=== PATIENT | female | born 1950 | race Caucasian/White ===

== ENCOUNTER → 2017-05-06 | Outpatient (CLI) | payer OTHER | LOC: RAD 11:20 | DX: Z12.31 Encounter for screening mammogram for malignant neoplasm of breast (principal); J18.9 Pneumonia, unspecified organism ==

== ENCOUNTER → 2018-06-27 | Outpatient (CLI) | payer OTHER | LOC: RAD 11:43 | DX: Z12.31 Encounter for screening mammogram for malignant neoplasm of breast (principal) ==

== ENCOUNTER → 2019-09-25 | Outpatient (CLI) | payer OTHER, MEDICARE | LOC: SJCVC 10:31 | DX: I25.10 Atherosclerotic heart disease of native coronary artery without angina pectoris (principal); I10 Essential (primary) hypertension; E78.00 Pure hypercholesterolemia, unspecified; I35.0 Nonrheumatic aortic (valve) stenosis; J44.9 Chronic obstructive pulmonary disease, unspecified; Z79.899 Other long term (current) drug therapy ==

== ENCOUNTER → 2020-06-09 | Outpatient (CLI) | payer OTHER, MEDICARE | LOC: SJCVCIMAG 09:36 | PROVIDERS: ATTEND Internal Medicine Cardiovascular Disease | DX: I08.0 Rheumatic disorders of both mitral and aortic valves (principal); I25.10 Atherosclerotic heart disease of native coronary artery without angina pectoris; J44.9 Chronic obstructive pulmonary disease, unspecified; Z98.61 Coronary angioplasty status; Z79.899 Other long term (current) drug therapy ==

== ENCOUNTER → 2021-02-10 | Outpatient (CLI) | payer OTHER, MEDICARE | LOC: SJCVCIMAG 10:44 → SJCVC 10:44 | PROVIDERS: ATTEND Internal Medicine Cardiovascular Disease | DX: I25.10 Atherosclerotic heart disease of native coronary artery without angina pectoris (principal); I10 Essential (primary) hypertension; E78.00 Pure hypercholesterolemia, unspecified; R29.898 Other symptoms and signs involving the musculoskeletal system; M25.559 Pain in unspecified hip; M79.662 Pain in left lower leg; M79.661 Pain in right lower leg; I35.0 Nonrheumatic aortic (valve) stenosis; J44.9 Chronic obstructive pulmonary disease, unspecified; Z87.891 Personal history of nicotine dependence; Z72.89 Other problems related to lifestyle; Z79.899 Other long term (current) drug therapy; Z88.2 Allergy status to sulfonamides ==

== ENCOUNTER 2021-06-19 16:28 | Inpatient (IN) | payer OTHER, MEDICARE ==
[~2021-06-19] VITALS: Ht 175.3 cm; Wt 99.0 kg
[2021-06-19] VITALS (18 sets, daily range): BP systolic 55–133; BP diastolic 24–113
--- NOTE | ~2021-06-19 | EMS ---
[facility] [address] [place] [address] EMS Patient Care Report Name: REHANA WHITTEN Room #: 245-P ADM IN M.R.#: [id number] Admission: 06/22/21 Attend Phys: Stef Valerio MD, Discharge: Date of : 50 Report #: [id number] THIS REPORT FOR: //name// Report Transmitted: 06/26/2021 13:53 EMS Care Summary [facility] Incident [id number] @ 06/19/2021 15:11 Incident Location [address] [place] [address] [place] [address] Patient Rehana Whitten Female, 70 Years 1950 Patient Address [address] [place] [id number] elevation (STEMI) myocardial infarction of unspecified site,Acute ischemic heart disease, unspecified, Patient Allergies , Disposition Transported No Lights/[place] Dispatch Reason Airmedical Transport Transported To [facility] Narrative LFE was called by [facility] to transport a pt having an inferior STEMI to [facility] per the pt s request. EMS reports the pt has sternal chest pain that radiated to bilateral shoulders. EMS gave the pt aspirin and morphine for pain. They added that the pt was very hypotensive (60-70 s systolic) on their initial assessment and after administration of Morphine administration. Pt had significant ST elevation in II, III and AVF with reciprocal changes. Pt has a hx of previous VT and received stents and was adamant that she wanted to go to [facility] where she has a [facility] [address] [place] [address] EMS Patient Care Report Name: REHANA WHITTEN Room #: 245-P ADM IN .R.#: [id number] Admission: 06/22/21 Attend Phys: Stef Valerio MD, Discharge: Date of : 50 Report #: [id number] controller operations and hr manager currently. Fast patches placed on pt for transport. labor relations specialist team was confirmed by E dispatch prior to agreeing to take the pt to requested receiving hospital. Report was called with 18 minute ETE to [place] and STEMI team requested by LFE crew. Upon arrival the ER the pt was placed in an ER room and STEMI was activated by COOPER APPRENTICE Narcisa Orozco. Care was transferred to ER nurse. Pt remained in ER room 12 until LFE departure. Initial Vitals @15:45P: 92,R: 13,BP: 127/86,Pain: 8/10,GCS: 15,Temp: 72.68F,Glucose: 127,SpO2: 97,Revised Trauma: 12, @15:53P: 81,R: 20,BP: 136/82,Pain: 6/10,GCS: 15,Temp: 75.56F,EtCO2: 26,SpO2: 99,Revised Trauma: 12, @16:03P: 99,R: 16,BP: 150/86,Pain: 6/10,GCS: 15,Temp: 75.13834208241938E,EtCO2: 28,SpO2: 95,Revised Trauma: 12, @16:15P: 91,R: 19,BP: 126/86,Pain: 6/10,GCS: 15,Temp: 74.84F,EtCO2: 25,SpO2: 90,Revised Trauma: 12, @16:24P: 99,R: 19,BP: 137/77,Pain: 7/10,GCS: 15,Temp: 65.12F,EtCO2: 29,SpO2: 99,Revised Trauma: 12, Assessments @15:38MENTAL:SKIN:HEENT:LUNG SOUNDS:ABDOMEN:PELVIS//GI:EXTREMITIES:PULSE:NEURO:@16:22MENTAL:SKIN:HEENT:LUNG SOUNDS:ABDOMEN:PELVIS//GI:EXTREMITIES:PULSE:NEURO: Impression ST elevation (STEMI) myocardial infarction of other sites Procedures @15:56 Other - Medication - 4 Liters per Minute (LPM [gas]) - Nasal Cannula Response: Improved @PTAMorphine - 4 Milligrams (mg) - Intravenous (IV) Response: Improved @PTAAspirin - 325 Milligrams (mg) - Oral Response: Unchanged @PTAIV Therapy - cc () Site: Antecubital-LeftSucceeded @16:12 Random blood glucose measurement (procedure)Succeeded @CERAMIC PAINTER: 16:14 Elevation of head of bed (procedure)Succeeded Timeline CERAMIC PAINTER,Morphine - 4 Milligrams (mg) - Intravenous (IV),Response: Improved CERAMIC PAINTER,Aspirin - 325 Milligrams (mg) - Oral,Response: Unchanged CERAMIC PAINTER,IV Therapy - cc Site: Antecubital-Left,Succeeded, 14:15,Call Received 15:10,Psap Call 15:11,Dispatched 15:20,En Route 15:32,On Scene [facility] [address] [place] [address] EMS Patient Care Report Name: CATALINA,REHANA E Room #: 245-P ADM IN ..#: [id number] Admission: 06/22/21 Attend Phys: Stef Valerio MD, Discharge: Date of : 50 Report #: [id number] 15:35,At Patient 15:43,Transfer Of Care 15:45,BP: 127/86 M,PULSE: 92,RR: 13 R,SPO2: 97 Ox,ETCO2: ,B,PAIN: 8,GCS: 15, 15:45,Depart Scene 15:53,BP: 136/82 M,PULSE: 81,RR: 20 R,SPO2: 99 Ox,ETCO2: 26 ,BG: ,PAIN: 6,GCS: 15, 15:56,Other - Medication - 4 Liters per Minute (LPM [gas]) - Nasal Cannula,Response: Improved 16:03,BP: 150/86 M,PULSE: 99,RR: 16 R,SPO2: 95 Ox,ETCO2: 28 ,BG: ,PAIN: 6,GCS: 15, 16:12,Random blood glucose measurement (procedure),Succeeded, 16:14,Elevation of head of bed (procedure),Succeeded, 16:15,BP: 126/86 M,PULSE: 91,RR: 19 R,SPO2: 90 Ox,ETCO2: 25 ,BG: ,PAIN: 6,GCS: 15, 16:19,At Destination 16:24,BP: 137/77 M,PULSE: 99,RR: 19 R,SPO2: 99 Ox,ETCO2: 29 ,BG: ,PAIN: 7,GCS: 15, 16:56,Call Closed 17:25,In District Disclaimer v1.1 Copyright 2020 [employer] This EMS Care Summary contains data elements from the applicable legal record (which may be displayed differently). It is designed to provide pertinent information for the following purposes: continuity of care, clinical quality, and state data reporting. The complete legal record is available to ED staff and administrators of the receiving hospital in [facility]'s Patient Tracker. All data is provided "as is."
--- NOTE | 2021-06-19 16:42 | NUR ---
1630 4000 HEPARIN GIVEN IV 1632 40 MG ATORVASTATIN GIVEN PO
[2021-06-19 20:24] LABS: BE(vivo) -20.4 mmol/L (-2 to +3); HCO3 9.9 mmol/L (22.0-26.0); PCO2 41.9 mmHg (35.0-45.0); PO2 101.4 mmHg (80.0-100.0); sO2 93.8 % (92.0-98.0)
[2021-06-19 20:25] LABS: pH 6.993 (7.360-7.450)
[2021-06-19 20:59] LABS: ABSOLUTE NEUTROPHILS 7.1 thou/uL (1.4-8.2); BASOPHILS 1.4 % (0.0-2.0); EOSINOPHILS 0.3 % (0.0-3.0); HEMATOCRIT 22.7 % (37.0-47.0); HEMOGLOBIN 7.6 gm/dL (12.0-15.0); LYMPHOCYTES 18.9 % (24.0-44.0); MCHC 33.3 g/dL (28.0-37.0); MCV 99.3 fL (80.0-100.0); PLATELET COUNT 164 thou/uL (150-400); POLYS 77.4 % (36.0-66.0); RBC 2.29 mil/uL (4.20-5.00); RDW 14.5 % (10.5-14.5); WBC 9.2 thou/uL (4.0-11.0)
[2021-06-19 21:08] LABS: BE(vivo) -12.6 mmol/L (-2 to +3); PCO2 34.5 mmHg (35.0-45.0); PO2 145.3 mmHg (80.0-100.0); sO2 98.5 % (92.0-98.0)
[2021-06-19 21:09] LABS: pH 7.225 (7.360-7.450)
[2021-06-19 21:20] LABS: CALCIUM 6.9 mg/dL (8.5-10.1); CREATININE 2.1 mg/dL (0.6-1.0); POTASSIUM 4.4 mmol/L (3.5-5.1)
[2021-06-19 21:25] LABS: ALBUMIN 2.1 g/dL (3.4-5.0); TOTAL BILIRUBIN 0.4 mg/dL (0.2-1.0)
[2021-06-19 21:31] LABS: MAGNESIUM 1.7 mg/dL (1.8-2.4)
[2021-06-19 22:57] LABS: BE(vivo) -12.4 mmol/L (-2 to +3); HCO3 15.8 mmol/L (22.0-26.0); PCO2 47.9 mmHg (35.0-45.0); PO2 88.2 mmHg (80.0-100.0); sO2 93.7 % (92.0-98.0)
[2021-06-19 22:58] LABS: pH 7.136 (7.360-7.450)
--- NOTE | 2021-06-19 23:45 | NUR ---
PT WAS TRANSFERRED FROM MANAGER OF MAINTENANCE AT 1930 WITH NO PREVIOUS REPORT GIVEN. PT WAS TRANSFERRED WITH LEVO, DOPAMINE, AND INTEGRILLIN INFUSING. PT UNSTABLE. O2 SATURATION 60S-70S AND LOW BP.
--- NOTE | 2021-06-20 00:04 | NUR ---
CRISSY DOW AND ASHA CALLED DUE TO PT CRITICAL CONDITION. ORDERS GIVEN. CAMILLE AT BEDSIDE. PT INTUBATED. CENTRAL LINE PLACED.
--- NOTE | 2021-06-20 00:26 | NUR ---
PALOMA TO BEDSIDE. SIGNIFICANT OTHER AT BEDSIDE. DR DOW SPOKE TO SIGNIFICANT OTHER ABOUT PT CONDITION AND DISCUSSED CODE STATUS.
[2021-06-20 04:40] LABS: HEMATOCRIT 25.7 % (37.0-47.0); HEMOGLOBIN 8.3 gm/dL (12.0-15.0); MCHC 32.5 g/dL (28.0-37.0); MCV 98.6 fL (80.0-100.0); RBC 2.61 mil/uL (4.20-5.00); RDW 14.9 % (10.5-14.5)
[2021-06-20 05:04] LABS: ALBUMIN 2.7 g/dL (3.4-5.0); ANION GAP 17 mmol/L (7-16); BUN 25 mg/dL (7-18); CHLORIDE 100 mmol/L (98-107); CHOLESTEROL 78 mg/dL (<200); CO2 18 mmol/L (21-32); CREATININE 2.5 mg/dL (0.6-1.0); GLUCOSE 492 mg/dL (74-106); HDL CHOLESTEROL 42 mg/dL (>40); LDL CHOLESTEROL -6 mg/dL (<100); SGOT 767 U/L (15-37); SGPT 201 U/L (30-65); SODIUM 135 mmol/L (136-145); TC:HDL 1.9 Ratio (Not establshd); TOTAL BILIRUBIN 0.9 mg/dL (0.2-1.0); TOTAL PROTEIN 5.5 g/dL (6.4-8.2); TRIGLYCERIDE 210 mg/dL (<150); VLDL 42 mg/dL (<40)
[2021-06-20 05:07] LABS: POTASSIUM 3.2 mmol/L (3.5-5.1); SERUM ASSESSMENT Clear
--- NOTE | 2021-06-20 05:52 | NUR ---
This RN did not call troponin value to Dr. Rodriguez at 0529 as he gave orders last night to not draw any troponins or call them.
--- NOTE | 2021-06-20 06:41 | NUR ---
CALLED DR WOODWARD AT 0327 TO UPDATE ABOUT PT CONDITION AND HEART RHYTHMS. ORDERS GIVEN. SEE MAR. WILL CONTINUE TO FOLLOW POC.
--- NOTE | 2021-06-20 08:30 | NUR ---
Assumed care after report. assessment done and evaluation of drips. talked with nicolette her significant other about present treatments.will cont to monitor.
[2021-06-20 09:04] LABS: BE(vivo) -12.7 mmol/L (-2 to +3); HCO3 14.3 mmol/L (22.0-26.0); PCO2 37.4 mmHg (35.0-45.0); pH 7.201 (7.360-7.450); sO2 96.3 % (92.0-98.0)
--- NOTE | 2021-06-20 09:05 | NUR ---
Dr Castellano here. orders for titrating meds off and evaluation of the situation.
--- NOTE | 2021-06-20 09:48 | NUR ---
Significant other here, updated.Plan is to titrate drips as much as possible. Taking pt's jewerly off. Shanika helping with taking the jewerly offwith lubicate. 1 watch, 1 gold looking necklace, 5 gold colored rings and 1 pendant 2 gold colored earrings given to Shanika.
--- NOTE | 2021-06-20 11:19 | 2DMMODE ---
[address] [address] 2 D/M-MODE ECHOCARDIOGRAM Name: LIZETH ARNOLD Room #: 245-P ADM IN M.R.#: [id number] Admission: 06/19/21 Attend Phys: Stef Valerio MD, Discharge: Date of : 50 Report #: [id number] THIS REPORT FOR: cc: Carly Kenny MD, Jennifer S. MD Lundgren,Faustino Rae MD [facility] ~ APPROVED REPORT Study performed: 06/19/2021 21:36:58 EXAM: Limited 2D Echocardiogram Patient Location: Bedside Room #: [facility] Status: on-call BSA: 2.02 HR: 66 bpm BP: 60/40 mmHg Other Information Study Quality: Adequate Indications S/P STEMI Shock Left Ventricle The left ventricle is normal size. There is normal left ventricular wall thickness. Left ventricular systolic function is mildly decreased. LVEF is 50%. Inferior and inferolateral wall hypokinesis at the base Right Ventricle The right ventricle is normal size. The right ventricular systolic function is normal. Atria The left atrium size is normal. The right atrium size is normal. Aortic Valve Aortic valve is moderately calcified and moderately stenotic (peak gradient 34 mmHg) Mitral Valve The mitral valve is normal in structure. Mild mitral regurgitation. [address] [address] 2 D/M-MODE ECHOCARDIOGRAM Name: LIZETH ARNOLD Room #: 245-P ADM IN M.R.#: [id number] Admission: 06/19/21 Attend Phys: Stef Valerio, Discharge: Date of : 50 Report #: [id number] No evidence of mitral valve stenosis. Tricuspid Valve The tricuspid valve is normal in structure. Moderate tricuspid insufficiency Pulmonic Valve The pulmonary valve is normal in structure. Great Vessels The aortic root is normal in size. Pericardium There is no pericardial effusion. Critical Notification Physician Notified <Conclusion> Abbreviated study Left ventricular systolic function is mildly decreased. LVEF is 50%. Inferior and inferolateral wall hypokinesis at the base Aortic valve is moderately calcified and moderately stenotic (peak gradient 34 mmHg) The mitral valve is normal in structure. Mild mitral regurgitation. There is no pericardial effusion. <ELECTRONICALLY SIGNED> By: Faustino Rodriguez MD, FACC 06/20/21 1119 1119 18 Faustino Rodriguez MD, FACC /INF
--- NOTE | 2021-06-20 11:23 | EKG ---
[place] [address] [facility] [facility] [employer] [address] ELECTROCARDIOGRAM REPORT Name: LIZETH ARNOLD Room #: 245-P ADM IN M.R.#: [id number] Admission: 06/19/21 Attend Phys: Stef Valerio MD, Discharge: Date of : 50 Report #: [id number] [facility] ED Test Date: 2021-06-19 Test Time: 16:37:02 Pat Name: LIZETH ARNOLD Department: Room: [facility] Gender: F Bellmaker: FAYE : 1950 Requested By: Dk Kaufman Order Number: [id number] MD: Faustino Rodriguez Measurements Intervals [place] Rate: 89 P: -71 DE: 233 QRS: 34 QRSD: 90 T: 94 QT: 372 QTc: 453 Interpretive Statements Sinus or ectopic atrial rhythm Occasional premature ventricular complexes Prolonged DE interval Abnormal R-wave progression, early transition Inferior infarct, acute (RCA) Lateral leads are also involved No previous ECG available for comparison Electronically Signed On 06-20-2021 11:23:16 CDT by Faustino Rodriguez [email or web address] <ELECTRONICALLY SIGNED> By: Faustino Rodriguez MD, [facility] 06/20/21 1123 1637 1637 Faustino Rodriguez MD, [facility] /EPI
--- NOTE | 2021-06-20 11:31 | EKG ---
[place] [address] [facility] [place] [address] ELECTROCARDIOGRAM REPORT Name: LIZETH ARNOLD Room #: [facility]- ADM IN M.R.#: [id number] Admission: 06/19/21 Attend Phys: Stef Valerio MD, Discharge: Date of : 50 Report #: [id number] [facility] [place] [place] Test Date: 2021-06-19 Test Time: 22:10:08 Pat Name: LIZETH ARNOLD Department: Room: [facility] Gender: F Lap Cutter: James ESTRADA : 1950 Requested By: Faustino Rodriguez Order Number: [id number] MD: Faustino Rodriguez Measurements Intervals [place] Rate: 99 P: SD: QRS: -4 QRSD: 94 T: 236 QT: 396 QTc: 509 Interpretive Statements Atrial fibrillation Ventricular premature complex Inferoposterior infarct, recent Prolonged QT interval Compared to ECG 06/19/2021 16:37:02 Prolonged QT interval now present ST elevation is less prominent Atrial fibrillation has replaced sinus rhythm Electronically Signed On 06-20-2021 11:31:09 CDT by Faustino Rodriguez [email or web address] <ELECTRONICALLY SIGNED> By: Faustino Rodriguez MD, [facility] 06/20/21 1131 221 09 Faustino Rodriguez MD, [facility] /EPI
--- NOTE | 2021-06-20 11:35 | EKG ---
[place] [address] [facility] [place] [address] ELECTROCARDIOGRAM REPORT Name: LIZETH ARNOLD Room #: [facility]- ADM IN M.R.#: [id number] Admission: 06/19/21 Attend Phys: Stef Valerio MD, Discharge: Date of : 50 Report #: [id number] [facility] Test Date: 2021-06-20 Test Time: 08:03:15 Pat Name: LIZETH ARNOLD Department: Room: [facility] Gender: F Early Childhood Associate: LORI : 1950 Requested By: Faustino Rodriguez Order Number: [id number] MD: Faustino Rodriguez Measurements Intervals [place] Rate: 91 P: [place]: QRS: -5 QRSD: 87 T: -20 QT: 420 QTc: 517 Interpretive Statements Accelerated junctional rhythm Inferoposterior infarct, recent Prolonged QT interval Compared to ECG 06/19/2021 22:10:08 Accelerated junctional rhythm now present Atrial fibrillation no longer present Ventricular premature complex(es) no longer present Electronically Signed On 06-20-2021 11:35:23 CDT by Faustino Rodriguez [email or web address] <ELECTRONICALLY SIGNED> By: Faustino Rodriguez MD, [facility] 06/20/21 1135 08 0803 Faustino Rodriguez MD, [facility] /EPI
[2021-06-20 11:49] VITALS: BP 118/66; BP 141/68
--- NOTE | 2021-06-20 12:30 | NUR ---
second Unit of PRBC given.
--- NOTE | 2021-06-20 13:00 | NUR ---
Call to Dr Rodriguez regarding extra order for the NaHCo3. Annika recieved.
--- NOTE | 2021-06-21 02:04 | NUR ---
06/20/212199 Patient oxygen saturation level dropped less than 89%. This RN increased fio2 from 50%-60%-70% and notified RT. Patient lung sounds are coarse on auscultation. Dr. Hart was notified of the patient's condition. Dr. hart ordered 40mg of lasix. Patient's fio2 was increased from 70% to 100% by the RT. Pt spo2 was above 92% five minutes after intervention.
[2021-06-21 05:34] LABS: CALCIUM 6.9 mg/dL (8.5-10.1); CREATININE 3.3 mg/dL (0.6-1.0)
[2021-06-21 05:38] LABS: HEMATOCRIT 29.7 % (37.0-47.0); HEMOGLOBIN 9.8 gm/dL (12.0-15.0); MCH 30.5 pg (26.0-34.0); RBC 3.22 mil/uL (4.20-5.00); RDW 16.2 % (10.5-14.5); WBC 11.6 thou/uL (4.0-11.0)
[2021-06-21 05:41] LABS: MCV 92.4 fL (80.0-100.0); POTASSIUM 4.6 mmol/L (3.5-5.1)
--- NOTE | 2021-06-21 07:53 | NUR ---
Dr. Rodriguez rounded, updated on current status, fluid volume, lasix last night, gtt titrations, and labs.
--- NOTE | 2021-06-21 07:55 | NUR ---
Pt is not progressing towards plan of care as evidenced by continued dependence of vent for oxygen support and BP gtts for BP support. Pt is also on fentanyl and versed for sedation.
--- NOTE | 2021-06-21 08:36 | NUR ---
Updated patients spokes person on current status.
--- NOTE | 2021-06-21 12:24 | 2DMMODE ---
[facility] [place] [address] 2 D/M-MODE ECHOCARDIOGRAM Name: LIZETH ARNOLD Room #: 245-P ADM IN M.R.#: [id number] Admission: 06/19/21 Attend Phys: Stef Valerio MD, Discharge: Date of : 50 Report #: [id number] THIS REPORT FOR: cc: Carly Kenny MD, Jennifer S. MD Lundgren,Faustino Rae MD [facility] ~ APPROVED REPORT Study performed: 06/20/2021 11:01:20 EXAM: Comprehensive 2D, Doppler, and color-flow Echocardiogram Patient Location: Bedside Room #: 245 Status: on-call BSA: 2.02 HR: 89 bpm BP: 135/64 mmHg Rhythm: Atrial Fibrillation Other Information Study Quality: Technically Difficult Technically limited study due to inability to position patient, patient on ventilator. Indications Aortic Valve Disease S/P TN Respiratory Failure Shock 2D Dimensions IVSd: 11.29 (7-11mm) LVOT Diam: 22.00 (18-24mm) LVDd: 49.93 mm PWd: 10.46 (7-11mm) Ascending Ao: 32.21 (22-36mm) LVDs: 36.90 (25-40mm) Aortic Root: 32.12 mm LV Single Plane 4CH: 50.74 % LV Single Plane 2CH: 43.99 % Biplane EF: 47.5 % Volumes Left Atrial Volume (Systole) Single Plane 4CH: 71.41 mL Single Plane 2CH: 77.05 mL LA ESV Index: 46.00 mL/m2 [facility] [address] [address] 2 D/M-MODE ECHOCARDIOGRAM Name: LIZETH ARNOLD Room #: 245-P [facility]#: [id number] Admission: 06/19/21 Attend Phys: Stef Valerio, Discharge: Date of : 50 Report #: [id number] Aortic Valve AoV Peak Castro.: 2.79 m/s AO Peak Gr.: 31.40 mmHg LVOT Max P.98 mmHg AO Mean Gr.: 20.00 mmHg LVOT Mean P.18 mmHg AO V2 Mean: 2.12 m/s LVOT Max V: 0.70 m/s AO V2 VTI: 40.38 cm LVOT Mean V: 0.52 m/s ROSY (VTI): 0.93 cm2 LVOT V1 VTI: 10.30 cm ROSY Vmax: 0.91 cm2 SV (LVOT): 37.43 mL Pulmonary Valve PV Peak Castro.: 0.86 m/s PV Peak Gr.: 2.94 mmHg Tricuspid Valve TR Peak Castro.: 2.43 m/s TR Peak Gr.: 23.63 mmHg Left Ventricle The left ventricle is normal size. Inferior and inferolateral wall hypokinesis at the base. There is normal left ventricular wall thickness. Left ventricular systolic function is mildly decreased. LVEF is 45-50%. This study is not technically sufficient to allow evaluation of the LV diastolic function due to atrial fibrillation. Right Ventricle Right ventricle is dilated. The right ventricular systolic function is normal. Atria Left atrium is moderately dilated. Right atrium is dilated. Aortic Valve Aortic valve is calcified. Moderate aortic stenosis No aortic regurgitation is present. (Peak aortic gradient of 31 mmHg, mean gradient of 20 mmHg). Calculated aortic valve area of 0.9 cm2. Mitral Valve The mitral valve is normal in structure. Mild mitral regurgitation. No evidence of mitral valve stenosis. Tricuspid Valve The tricuspid valve is normal in structure. Trace to mild tricuspid regurgitation. Pulmonary artery pressure of 30mmHg [facility] [address] [place] [address] 2 D/M-MODE ECHOCARDIOGRAM Name: LIZETH ARNOLD Room #: 245-P [facility] IN [facility]#: [id number] Admission: 06/19/21 Attend Phys: Stef Valerio, Discharge: Date of : 50 Report #: [id number] Pulmonic Valve The pulmonary valve is normal in structure. Trace pulmonic regurgitation. Great Vessels The aortic root is normal in size. The ascending aorta is normal in size. IVC is dilated and collapses <50% with inspiration. Pt. is on a ventilator. Pericardium There is no pericardial effusion. <Conclusion> Left ventricular systolic function is mildly decreased. Inferior and inferolateral wall hypokinesis at the base. LVEF is 45-50%. Aortic valve is calcified. Moderate aortic stenosis. No aortic insufficiency (Peak aortic gradient of 31 mmHg, mean gradient of 20 mmHg). Calculated aortic valve area of 0.9 cm2. The mitral valve is normal in structure. Mild mitral regurgitation. Trace to mild tricuspid regurgitation. Pulmonary artery pressure of 30mmHg There is no pericardial effusion. <ELECTRONICALLY SIGNED> By: Faustino Rodriguez MD, FACC 06/21/21 1224 1224 1224 Faustino Rodriguez MD, FACC /INF
--- NOTE | 2021-06-21 12:41 | EKG ---
[place] [address] [facility] [place] [address] ELECTROCARDIOGRAM REPORT Name: LIZETH ARNOLD Room #: [facility]- ADM IN M.R.#: [id number] Admission: 06/19/21 Attend Phys: Stef Valerio MD, Discharge: Date of : 50 Report #: [id number] [facility] Test Date: 2021-06-21 Test Time: 08:45:23 Pat Name: LIZETH ARNOLD Department: Room: [facility] Gender: F Sales Representatives: SOFYA : 1950 Requested By: Faustino Rodriguez Order Number: [id number] MD: Faustino Rodriguez Measurements Intervals [place] Rate: 91 P: [place]: QRS: 6 QRSD: 81 T: -62 QT: 404 QTc: 498 Interpretive Statements Atrial fibrillation Inferior infarct, recent Compared to ECG 06/20/2021 08:03:15 Atrial fibrillation has replaced accelerated junctional rhythm Electronically Signed On 06-21-2021 12:41:06 INSTRUCTIONAL DESIGN CONSULTANT by Faustino Rodriguez [email or web address] <ELECTRONICALLY SIGNED> By: Faustino Rodriguez MD, [facility] 06/21/21 1241 845 4 Faustino Rodriguez MD, FACC /EPI
--- NOTE | 2021-06-21 13:46 | NUR ---
Talked with Dr. Serna in regards to the kub, kidney findings relayed to Dr. Castellano.
[2021-06-21 21:11] VITALS: BP 126/84
[2021-06-22] VITALS (62 sets, daily range): BP systolic 80–145; BP diastolic 55–96
[2021-06-22 01:10] LABS: BE(vivo) 5.9 mmol/L (-2 to +3); HCO3 28.9 mmol/L (22.0-26.0); PCO2 36.2 mmHg (35.0-45.0); PO2 83.5 mmHg (80.0-100.0); sO2 97.2 % (92.0-98.0)
[2021-06-22 04:40] LABS: BE(vivo) 6.6 mmol/L (-2 to +3); HCO3 30.5 mmol/L (22.0-26.0); PCO2 40.8 mmHg (35.0-45.0); PO2 75.6 mmHg (80.0-100.0); pH 7.491 (7.360-7.450); sO2 96.1 % (92.0-98.0)
[2021-06-22 04:43] LABS: HEMATOCRIT 30.7 % (37.0-47.0); HEMOGLOBIN 10.5 gm/dL (12.0-15.0); MCH 31.2 pg (26.0-34.0); MCV 91.7 fL (80.0-100.0); PLATELET COUNT 86 thou/uL (150-400); RBC 3.35 mil/uL (4.20-5.00); RDW 15.8 % (10.5-14.5); WBC 10.2 thou/uL (4.0-11.0)
[2021-06-22 05:03] LABS: CALCIUM 6.6 mg/dL (8.5-10.1); CREATININE 3.8 mg/dL (0.6-1.0)
[2021-06-22 05:05] LABS: POTASSIUM 3.6 mmol/L (3.5-5.1)
[2021-06-22 05:10] LABS: ABSOLUTE NEUTROPHILS 9.9 thou/uL (1.4-8.2); NUCLEATED RBCS 1 /100WBC
--- NOTE | 2021-06-22 07:26 | NUR ---
Patient is not progressing towards plan of care as evedenced by: dependence on vent for oxygen support, dependence on BP gtts for BP support. Pt is still fully sedated and responds only to painful stumuli. Pt's BP fluctuates drastically to over stimulation
--- NOTE | 2021-06-22 07:35 | EKG ---
[facility] [place] [address] ELECTROCARDIOGRAM REPORT Name: LIZETH ARNOLD Room #: [facility]- ADM IN M.R.#: [id number] Admission: 06/19/21 Attend Phys: Stef Valerio MD, Discharge: Date of : 50 Report #: [id number] [facility] Test Date: 2021-06-22 Test Time: 07:31:20 Pat Name: LIZETH ARNOLD Department: Room: [facility] Gender: F Treating Engineer: SILVINA : 1950 Requested By: Faustino Rodriguez Order Number: [id number] MD: Faustino Rodriguez Measurements Intervals [place] Rate: 96 P: CT: QRS: 8 QRSD: 70 T: 128 QT: 409 QTc: 517 Interpretive Statements Accelerated junctional rhythm Inferior infarct, recent Borderline repolarization abnormality Prolonged QT interval Compared to ECG 06/21/2021 08:45:23 Accelerated junctional rhythm now present Low QRS voltage now present Prolonged QT interval now present Electronically Signed On 06-22-2021 7:35:07 AIRPLANE PILOT by Faustino Rodriguez [email or web address] <ELECTRONICALLY SIGNED> By: Faustino Rodriguez MD, [facility] 06/22/2135 0 0 Faustino Rodriguez MD, [facility] /EPI
--- NOTE | 2021-06-22 12:09 | NUR ---
INITIAL ASSESSMENT: SW reviewed chart and spoke with nursing. Pt was life flighted to [facility] on Tuesday, 06/19 due to stemi. Pt was taken urgently to the label folder and transferred to ICU. Pt is currently intubated and sedated. Pt on several IV meds and gtts. DEB met with pt's granddtr, Rajwinder, at bedside. Introduced role of SW. Per Rajwinder, pt is normally independent with ADLs. Pt is usually alert/orientated x 4. Pt and her life partner, Lissa, live in [place], [place]. DPOA ppwk on pt's chart. Rajwinder requests documentation for her employer that states pt is in the hospital. SW to provide this documentation to Rajwinder later today. PT/OT evals to be ordered when pt is able to participate. DEB is following to assist as needed with discharge planning.
[2021-06-22 17:02] LABS: CALCIUM 6.5 mg/dL (8.5-10.1); POTASSIUM 3.8 mmol/L (3.5-5.1)
--- NOTE | 2021-06-22 18:17 | NUR ---
pt was given scheduled lasix twice today. no improvement in the urine output. Dr. Burgess was paged to inform about pt low urine output despite lasix therapy. Dr. Burgess gave verbal order not to be called for low urine output or no urine output.
--- NOTE | 2021-06-22 19:04 | NUR ---
Pt shaking. Pt temperature was 98.6 F. otoniel hugger on. sedation titrated up. pt becoming hypotensive. unsuccessful weaning off the vasopressors. pt not progressing towards goals.continue to monitor.
[2021-06-23] VITALS (8 sets, daily range): BP systolic 89–117; BP diastolic 58–71
[2021-06-23 04:01] LABS: HEMOGLOBIN 9.7 gm/dL (12.0-15.0); MCH 31.5 pg (26.0-34.0); MCHC 34.6 g/dL (28.0-37.0); MCV 91.1 fL (80.0-100.0); RBC 3.08 mil/uL (4.20-5.00); RDW 15.6 % (10.5-14.5); WBC 7.8 thou/uL (4.0-11.0)
[2021-06-23 04:11] LABS: CALCIUM 6.1 mg/dL (8.5-10.1); CREATININE 3.9 mg/dL (0.6-1.0); POTASSIUM 3.2 mmol/L (3.5-5.1)
--- NOTE | 2021-06-23 07:34 | EKG ---
[place] [address] [facility] [place] [address] ELECTROCARDIOGRAM REPORT Name: LIZETH ARNOLD Room #: [facility]- ADM IN M.R.#: [id number] Admission: 06/22/21 Attend Phys: Stef Valerio MD, Discharge: Date of : 50 Report #: [id number] [facility] Test Date: 2021-06-23 Test Time: 07:26:58 Pat Name: LIZETH ARNOLD Department: Room: [facility] Gender: F Generation Technician: SILVINA : 1950 Requested By: Faustino Rodriguez Order Number: [id number] MD: Faustino Rodriguez Measurements Intervals [place] Rate: 83 P: [place]: QRS: 16 QRSD: 93 T: 115 QT: 442 QTc: 520 Interpretive Statements Accelerated junctional rhythm Low voltage, precordial leads Abnormal R-wave progression, early transition Inferior infarct, age indeterminant Prolonged QT interval Compared to ECG 06/22/2021 07:31:20 No significant change was found Electronically Signed On 06-23-2021 7:34:24 FITNESS MANAGER by Faustino Rodriguez [email or web address] <ELECTRONICALLY SIGNED> By: Faustino Rodriguez MD, [facility] 06/23/2134 5 5 Faustino Rodriguez MD, [facility] /EPI
--- NOTE | 2021-06-23 12:00 | NUR ---
SW reviewed chart and spoke with nursing and attending physician. Pt remains in ICU. Pt is intubated and sedated. Neuro and ID consults ordered today. Tube feeding to be started. PT/OT evals to be ordered when pt is able to participate. SW is following to assist as needed with discharge planning.
[2021-06-23 13:27] LABS: URINE BILIRUBIN NEGATIVE (Negative); URINE BLOOD 3+ (Negative); URINE COLOR YELLOW; URINE GLUCOSE-RANDOM* NEGATIVE (Negative); URINE KETONES NEGATIVE (Negative); URINE PROTEIN (DIPSTICK) NEGATIVE (Negative); URINE UROBILINOGEN 0.2 E.U./dl (0.2-1.0)
[2021-06-23 13:37] LABS: URINE LEUKOCYTES-REFLEX 3+ (Negative); URINE NITRITE-REFLEX POSITIVE (Negative)
[2021-06-23 13:38] LABS: SSA (PROTEIN CONFIRMATORY) TRACE (APPROX. 5) mg/dL (Negative); URINE CLARITY HAZY
[2021-06-23 13:41] LABS: BE(vivo) 8.7 mmol/L (-2 to +3); HCO3 32.9 mmol/L (22.0-26.0); PO2 74.1 mmHg (80.0-100.0); pH 7.492 (7.360-7.450); sO2 95.8 % (92.0-98.0)
[2021-06-23 13:50] LABS: CASTS None Seen /LPF (None Seen); SQUAMOUS 0-3 Few /LPF (0-3)
[2021-06-23 13:51] LABS: AMORPHOUS PHOSPHATES Few /LPF (None Seen); URINE RBC 1-2 Rare /HPF (NONE SEEN); URINE WBC-REFLEX 6-15 Few /HPF (0-5)
[2021-06-24] VITALS: BP 137/72
[2021-06-24 04:00] VITALS: BP 152/77
[2021-06-24 06:13] LABS: HEMATOCRIT 29.9 % (37.0-47.0); MCHC 33.5 g/dL (28.0-37.0); MCV 92.6 fL (80.0-100.0); RBC 3.23 mil/uL (4.20-5.00); RDW 15.7 % (10.5-14.5); WBC 7.4 thou/uL (4.0-11.0)
[2021-06-24 06:31] LABS: ALBUMIN 1.8 g/dL (3.4-5.0); CALCIUM 6.2 mg/dL (8.5-10.1); CREATININE 3.7 mg/dL (0.6-1.0); PHOSPHORUS 5.8 mg/dL (2.5-4.9); POTASSIUM 3.1 mmol/L (3.5-5.1)
--- NOTE | 2021-06-24 07:30 | NUR ---
Very slow progress toward goals. Pt still on 70% FiO2, peep 10, requires deep sedation or has generalized body tremors (per previous nurse's report) -- not ready for weaning trials at this time. Remains on Quad strength Levophed at 13 mcg/min, Dobutamine at 8 mcg/kg/min but has been able to titrate Dopamine down from 8 mcg/kg/min to 3 mcg/kg/min. BP very dependent on pressors. Tube feeding started yesterday evening, so far tolerating well and able to increase from 10 cc/hr to 20 cc/hr. Pt has liquid light brown stool x1 last night. Fingers and toes are mottled and purple. Skin remains intact. Diuresing well from Lasix, 3650 cc out this shift.
--- NOTE | 2021-06-24 08:04 | EKG ---
[facility] [employer] [place] [address] ELECTROCARDIOGRAM REPORT Name: LIZETH ARNOLD Room #: [facility]- ADM IN M.R.#: [id number] Admission: 06/22/21 Attend Phys: Stef Valerio MD, Discharge: Date of : 50 Report #: [id number] [facility] Test Date: 2021-06-24 Test Time: 07:26:10 Pat Name: LIZETH ARNOLD Department: Room: [facility] Gender: F Instructional Assistant: SILVINA : 1950 Requested By: Faustino Rodriguez Order Number: [id number] MD: Faustino Rodriguez Measurements Intervals Mcneil Rate: 77 P: -75 IN: 127 QRS: 17 QRSD: 86 T: 80 QT: 383 QTc: 434 Interpretive Statements Sinus or ectopic atrial rhythm Nonspecific ST and T wave abnormality Inferior infarct, age indeterminate Prolonged QT interval Compared to ECG 06/23/2021 07:26:58 Sinus rhythm has replaced accelerated junctional rhythm Electronically Signed On 06-24-2021 8:04:42 ER MANAGER by Faustino Rodriguez [email or web address] <ELECTRONICALLY SIGNED> By: Faustino Rodriguez MD, [facility] 06/24/21803 5 5 Faustino Rodriguez MD, [facility] /EPI
--- NOTE | 2021-06-24 13:04 | HC ---
[facility] [place] [address] CONSULTATION Name: LIZETH ARNOLD Room #: 245-P [facility] IN M.R.#: [id number] Admission: 06/22/21 Attend Phys: Stef Valerio MD, Discharge: Date of : 50 Report #: [id number] THIS REPORT FOR: cc: Carly Kenny MD, Jennifer S. MD Barry, Joseph W. MD ~ DATE OF SERVICE: 06/23/2021 INFECTIOUS DISEASE CONSULTATION ATTENDING PHYSICIAN: Dr. Valerio. REASON FOR EVALUATION: Suspected aspiration pneumonitis and respiratory failure with early ARDS. HISTORY OF PRESENT ILLNESS: Chart reviewed, patient examined. This is a 70-year-old woman who has known history of coronary artery disease, who presented with chest pain. Evaluation suggested acute myocardial infarction. She was taken to the cardiac catheterization lab and underwent stenting procedure, experienced a postprocedure shock. She was intubated, currently on ventilatory support, FiO2 of 70%. She is sedated. Her granddaughter is at the bedside. Followup chest x-ray today showed worsening moderate to severe bilateral widespread predominantly ____ lower lobe interstitial and alveolar infiltrates, small bilateral pleural effusions, borderline heart size. ____ was found to have acute renal injury, most recent creatinine of 3.9, had required multiple pressors and ____, she is maintained on dopamine and norepinephrine. ALLERGIES: LISTED TO SULFA. CURRENT MEDICATIONS: Include furosemide, aspirin, atorvastatin, norepinephrine and dobutamine. PAST MEDICAL HISTORY: Known coronary artery disease with previous stenting, previous appendectomy. FAMILY HISTORY: Available in chart. REVIEW OF SYSTEMS: Unobtainable. PHYSICAL EXAMINATION: GENERAL: She is pale, appears chronically ill appearing. She is maintained on ventilatory support. She is encephalopathic. VITAL SIGNS: Temperature 98.7, pulse 86, respirations ____, blood pressure 102/68. SKIN: Warm, dry. HEENT: Normocephalic. Extraocular muscles intact. ET and OG tube in place. [facility] [address] [place] [address] CONSULTATION Name: LIZETH ARNOLD Room #: 245-P [facility] IN M.R.#: [id number] Admission: 06/22/21 Attend Phys: Stef Valerio MD, Discharge: Date of : 50 Report #: [id number] Central venous catheter on the right. LUNGS: Scattered coarse breath sounds. HEART: Irregular, I do not appreciate a murmur. ABDOMEN: Somewhat distended, mildly firm. There are no overt peritoneal signs. Has a right-sided inguinal triple lumen catheter. GENITOURINARY AND RECTAL: Deferred. LABORATORY DATA: Chest x-ray as described above. Electrolytes: Sodium 123, potassium 3.2, chloride 82, bicarbonate is 33, anion gap of 8, BUN and creatinine 33 and 3.9, EGFR of 11. CBC: White count 7.8, H and H 9.7 and 28.0, platelets at 71. Blood cultures sterile thus far. ASSESSMENT AND PLAN: Respiratory failure, pneumonitis, likely multifactorial certainly suggests a cardiac component, although cannot exclude aspiration. We will start empiric antimicrobial therapy for suspected aspiration. In addition, I will try to collect sputum, check some urinary antigen. She is critically ill at this point. Continue to monitor expectantly. <ELECTRONICALLY SIGNED> By: Silvano Milner MD 06/24/21 1304 1011 1138 Silvano Milner MD /nt
--- NOTE | 2021-06-24 18:36 | NUR ---
PT IS NOT PROGRESSING TOWARDS DISCHARGE AT THIS TIME, TO WORK TOWARDS GOAL RN HAS BEEN DECREASING THE SEDATION; NOW ON 50 FENTANYL, AND DECREASEING THE PRESSORS; LESSENED LEVOPHED, AND FOR INFECTION PROPHYLAXIS FEMORAL ART/SWAN LINE WAS REMOVED PER /PALOMA'S RECOMMENDATION AND NEW R RADIAL ART LINE DROPPED BY . PT MINIMALLY RESPONSIVE AT THIS TIME, RN PLACED A BAIRHUGGER SINCE PT'S DISTALS ARE TURNING CYANOTIC.
[2021-06-25 02:43] LABS: HEMATOCRIT 29.3 % (37.0-47.0); HEMOGLOBIN 9.8 gm/dL (12.0-15.0); MCH 30.7 pg (26.0-34.0); MCHC 33.5 g/dL (28.0-37.0); MCV 91.6 fL (80.0-100.0); RBC 3.2 mil/uL (4.20-5.00); RDW 15.5 % (10.5-14.5); WBC 9.8 thou/uL (4.0-11.0)
[2021-06-25 03:08] LABS: CALCIUM 6.4 mg/dL (8.5-10.1); CREATININE 3.7 mg/dL (0.6-1.0); POTASSIUM 3.1 mmol/L (3.5-5.1)
--- NOTE | 2021-06-25 03:45 | NUR ---
ASSUMED CARE OF PATIENT AT 1900. REMAINS ON PRESSORS AND LIGHT SEDATION. ELECTROLYTES REPLACED PER PROTOCOL. ART LINE IN PLACE FOR HEMODYNAMIC MONITORING. FINGERS AND TOES REMAIN MOTTLED AND CYANOTIC. NO CALLS FROM FAMILY THIS SHIFT.
--- NOTE | 2021-06-25 10:59 | NUR ---
ASSUMED CARE OF PT AT 0700 PTS GRAND DAUGHTER AT BEDSIDE AT 0800, ANSWERED ALL QUESTION PER POC EVELYN AT BEDSIDE TO PERFORM EEG AT 0930 SPOKE TO PT'S PARTNER CARY AT 1015 AND UPDATED HER PER POC
--- NOTE | 2021-06-25 11:49 | NUR ---
Case discussed in ICU rounds. EEG done this am. Gerardo Purdy is currently at bedside and sign other Lissa updated via phone per RN. She will be in later today. A copy of the pt's DPOA for HC/Adv Directive is on the chart. Her life partner Lissa is the primary agent and gerardo Purdy the alternate. Pt is on vent support, weaning off levo and poorly responsive. Hendricks is guarded. Will continue to follow.
[2021-06-26 05:33] LABS: HEMATOCRIT 27.1 % (37.0-47.0); HEMOGLOBIN 9.2 gm/dL (12.0-15.0); MCH 31.7 pg (26.0-34.0); MCHC 34.1 g/dL (28.0-37.0); RBC 2.91 mil/uL (4.20-5.00); RDW 15.7 % (10.5-14.5); WBC 10.8 thou/uL (4.0-11.0)
[2021-06-26 06:01] LABS: ALBUMIN 1.5 g/dL (3.4-5.0); CALCIUM 6.3 mg/dL (8.5-10.1); PHOSPHORUS 3.9 mg/dL (2.5-4.9); POTASSIUM 3.4 mmol/L (3.5-5.1)
--- NOTE | 2021-06-26 08:32 | NUR ---
REMAINS INTUBATED AND NONRESPONSIVE. NOT PROGRESSING TOWARD GOALS REMAINS NO CPR CODE STATUS
--- NOTE | 2021-06-26 09:31 | CATHLAB ---
[facility] [address] [address] [address] INVASIVE PROCEDURE REPORT Name: LIZETH ARNOLD Room #: 245-P ADM IN M.R.#: [id number] Admission: 06/22/21 Attend Phys: Stef Valerio MD, Discharge: Date of : 50 Report #: [id number] THIS REPORT FOR: cc: Carly Kenny MD, Jennifer S. MD Mancuso, Gerald M. MD [facility] ~ APPROVED REPORT Study performed: 06/19/2021 16:30:53 Patient Details Patient Status: ED Room #: The patient is a 70 year-old female Event Personnel Stef Valerio Associate Chemist, Favio Bobo RN RN, Nadiya Walters RTR, Alok Nelson Roberta Monitor Procedures Performed Art Access - R femoral artery* Eder Access - R femoral vein Right and Left Heart Cath w/or w/o Coronarie [id number] [facility] IRIS Revasc AMI Total/Sub Single RCA C9606 AMIREVSING 51187 Initial Mod Sed Same Phys/QHP Gr5y 614030 49748 Mod Sed Same Phys/QHP Ea 854607 Indication Chest pain Procedure Narrative The Right Groin^ was infiltrated with 1% Lidocaine subcutaneous anesthesia. A PINNACLE 6FR Sheath #[id number] sheath was inserted into the . Coronary angiography was performed using coronary diagnostic catheters. The right coronary system was accessed and visualized with a JR4 catheter. The left coronary system was accessed and visualized with a JL4 catheter. The left ventricle was accessed and visualized with a ANGLE PIG catheter. Left ventriculogram was performed in 30 degree projection. ARTERIAL AND VENOUS SHEATHS SUTTURED IN, AND OPSITE PLACED OVER. Intraoperative Conscious Sedation Sedation start time: 1654 Case end Time: 1922 Fentanyl 50 mcg Versed [address] [facility] [place] [address] INVASIVE PROCEDURE REPORT Name: LIZETH ARNOLD Room #: 245-P [facility] IN ..#: [id number] Admission: 06/22/21 Attend Phys: Stef Valerio, Discharge: Date of : 50 Report #: [id number] Fluoro Time: 33.00 minutes Dose: DAP 793384.00 cGycm2 2908 mGy Contrast Type and Amount: Visipaque 235 ml Hemodynamics The right atrial mean pressure is 20 mmHg. The right ventricular pressure is 41/6 mmHg. The pulmonary artery pressure is 28/14 mmHg with a mean of 20 mmHg. The mean pulmonary capillary wedge pressure is 6 mmHg. The aortic pressure is 125/68 mmHg with a mean of mmHg. PCI Technique Lesion Percutaneous coronary intervention was performed on the mid right coronary artery. A LAUNCHER 6FR JR 4 90CM #[id number] Guide Catheter was used to engage the RCA ostium. A Luge Wire .014 x 182CM #[id number] Interventional Guidewire was used to cross the lesion. BALLOON DILATION A Balloon catheter Sprinter OTW 2.5 x 12 #[id number] was inserted and inflated up to 12.00atm for 19seconds. Additional Inflation: 16.00atm for 13seconds. Additional Inflation: 18.00atm for 16seconds. ADDITONAL INFLATIONS: 10ATM FOR 8 SEC, 16 MAURO FOR 10 SEC.. [id number] SPRINTER BALLOON USED NEXT INFLATIONS: 18 MAURO FOR 12. STENT DEPLOYMENT A stent RESOLUTE JAMAL OTW 3.0 X 22 #[id number] was inserted and inflated up to 18.00atm for 28seconds. POST STENT DEPLOYMENT BALLOON DILATION A Balloon catheter Sprinter OTW 3.0 x 25 #[id number] was inserted and inflated up to 10atm for 16seconds. Also a Trek 3.59q18yy balloon was inflated 12 mauro for 16 sec.. The next balloon sprinter 2.35 x 20mm inflations: 14 mauro for 22, 18 mauro for 22 sec, 18 mauro for 16 sec. performed. Conclusion #1 Successful emergent PTCA stent of a totally occluded acute infarct vessel right coronary artery placement of a 3 oh by 22 resolute stent proximally with dilatation of the entire mid vessel with extensive calcification with 2 5 and 3 0 sprinter balloons. With eventual roman catholic of GEORGE grade III flow. Intracoronary diltiazem was utilized. For initial no flow. This was complicated by some brief CPR and significant pressor support utilized. Volume also utilized due to suspected RV involvement. Defibrillation x1 for VF. With some stabilization prior to transfer to ICU. #2 placement of Little Silver-Cassy catheter left in for monitoring purposes and access. [facility] [place] [email or web address] [address] INVASIVE PROCEDURE REPORT Name: LIZETH ARNOLD Room #: 245-P ADM IN M.R.#: [id number] Admission: 06/22/21 Attend Phys: Stef Valerio, Discharge: Date of : 50 Report #: [id number] #3 the remainder of the dominant right was moderately diseased and calcified but was able to restore GEORGE grade III flow. #4 left main calcified mildly disease giving rise to LAD and circumflex. #5 the LAD with previous stent is moderately diseased but patent to the apex. Eccentric 50 to 60% proximal lesion. #6 nondominant circumflex with mild disease high rising ramus branch was moderate in size and distribution remained patent. #7 aortic valve was not crossed moderate aortic valve stenosis 1.0 cm by noninvasive. #8 aortic root is mildly dilated with trivial aortic insufficiency. Recommendations and plan: Patient is transferred to the ICU with moderate hypotension. She is status post defibrillation and transient CPR for this acute infarct vessel right coronary artery with some RV involvement. Her condition is guarded and critical upon transfer to the ICU. <ELECTRONICALLY SIGNED> By: Stef Valerio MD, FACC 06/26/21930 0 0 Stef Valerio MD, FACC /INF
--- NOTE | 2021-06-26 13:02 | NUR ---
NEUROLOGIST ORDER MRI. MRI CALLED RN TO FIND OUT WHEN AN RT WAS AVAILABLE AFTER 1400. RT EXPLAINED THAT THEY WERE VERY SHORT STAFFED. MANAGER VOICE CALLED DR HAIRSTON TO MOVE MRI TO TOMORROW. MANAGER VOICE NOTIFIED ME THAT DR ESTRADA WAS OK WITH DOING MRI TOMORROW. RT NOTIFIED ABOUT MRI TOMORROW AROUND 1100.
--- NOTE | 2021-06-26 13:04 | NUR ---
PT DID NOT FOLLOW COMMANDS THIS AM. PT HAD NO NEURO REACTION DURING MY MORNING ASSESSMENT WELL MY 1200 ASSESSMENT. PT BP HAS BEEN STABLE EN OUGH TO TURN DOBUTAMINE OFF AND DOPAMINE DOWN. PT STILL ON DOPAMINE AND AMIO GTT. PT DOES HAVE A POSTIVE COUGH AND GAG REFLEX. SIGNIFICANT OTHER AT BEDSIDE AND RN HAS PROVIDED EDUCATION OF SIGNIFICANT OTHER. WILL CONTINUE TO MONITOR AND FOLLOW PLAN OF CARE.
[2021-06-26 14:10] LABS: ALBUMIN 1.5 g/dL (3.4-5.0); DIRECT BILIRUBIN 0.9 mg/dL (<0.1-0.2); TOTAL BILIRUBIN 1.5 mg/dL (0.2-1.0); TOTAL PROTEIN 4.7 g/dL (6.4-8.2)
--- NOTE | 2021-06-26 17:44 | NUR ---
ASSUMED CARE OF PATIENT AT 0600. VENT SETTINGS WERE FOLLOWS: 18/500/.70 +10 NO CHANGES WERE MADE TO HER SETTINGS THROUGHOUT THE DAY. SHE IS SHOWING NO SIGNS OF DISTRESS.
[2021-06-27] VITALS (25 sets, daily range): BP systolic 91–125; BP diastolic 46–77
[2021-06-27 04:54] LABS: HEMATOCRIT 26.5 % (37.0-47.0); HEMOGLOBIN 9.1 gm/dL (12.0-15.0); MCH 31.8 pg (26.0-34.0); MCHC 34.4 g/dL (28.0-37.0); MCV 92.3 fL (80.0-100.0); RBC 2.87 mil/uL (4.20-5.00); RDW 16.1 % (10.5-14.5); WBC 9.8 thou/uL (4.0-11.0)
[2021-06-27 05:45] LABS: ALBUMIN 1.5 g/dL (3.4-5.0); CALCIUM 6.3 mg/dL (8.5-10.1); CREATININE 4.3 mg/dL (0.6-1.0); PHOSPHORUS 3.5 mg/dL (2.6-4.7); POTASSIUM 3.1 mmol/L (3.5-5.1)
--- NOTE | 2021-06-27 06:44 | NUR ---
ASSUMED CARE AT 1900. CONTINUES TO HAVE GCS OF 3. HIGH OUTPUT FROM FMS OVERNIGHT, ADEQUATE UOP. WEEPING FROM SMALL OPEN SPOTS ON ABD. TITRATED DOPAMINE OFF AT 0315. NO FURTHER CONCERNS, NOT PROGRESSING TOWARDS GOALS.
[2021-06-27 09:28] LABS: BE(vivo) 11.5 mmol/L (-2 to +3); HCO3 33.7 mmol/L (22.0-26.0); PCO2 34.6 mmHg (35.0-45.0); PO2 68.4 mmHg (80.0-100.0); sO2 96.2 % (92.0-98.0)
[2021-06-27 09:30] LABS: pH 7.606 (7.360-7.450)
--- NOTE | 2021-06-27 15:15 | NUR ---
RN TOOK PT TO MRI WITH EDUCATIONAL PSYCHOLOGIST AND RT. PT OG TUBE WAS SUCTIONED PRIOR TO LEAVING FOR MRI SINCE SHE HAD TO LAY FLAT FOR A PERIOD OF TIME. GOT 300 ML OUT THEN CLAMPED IT OFF. PT WAS TRANSPORTED BY BED TO MRI AND WAS TRASNFERRED TO MRI TABLE. PT WAS SITUATED ON TABLE AND IN THE SCANNER AND THE SCANNER DID NOT WORK. PT WAS THEN TRANSPORTED BACK TO HER ROOM. SIGNIFICANT OTHER WAS AT BEDSIDE ONCE RN AND PT GOT BACK TO THE ROOM. CARY WAS INFORMED ABOUT THE INABILITY TO GET THE HEAD MRI. EDUCATIONAL PSYCHOLOGIST TOLD RN IT COULD BE TOMORROW OR TUESDAY BEFORE THE MACHINE GETS FIXED AND UP AND RUNNING. WILL CONTINUE TO MONITOR AND FOLLOW PLAN OF CARE.
--- NOTE | 2021-06-27 15:28 | NUR ---
RN CALLED NEUROLOGY ANSWERING SERVICE TO LET DR. HERNANDEZ KNOW ABOUT PT NOT GETTING AN MRI TODAY AT 1100 DUE TO MACHINE BEING DOWN. TALKED TO WASTE WATER OPERATOR/ANSERING SERVICE PHARMACY INTAKE COORDINATOR. UNSURE OF WHEN TEST WILL BE PERFORMED
[2021-06-28] VITALS (37 sets, daily range): BP systolic 107–144; BP diastolic 54–78
--- NOTE | 2021-06-28 00:29 | NUR ---
PT HAS FREQUENT MOVEMENT OF THE TONGUE AND GRIMACING DURING SUCTION AND ORAL SWAB CARE. PT ALSO DISPLAYED WIGGLING OF HER SHOULDERS FOR A MOMENT DURING THE ORAL CARE.
[2021-06-28 04:50] LABS: BE(vivo) 13.1 mmol/L (-2 to +3); HCO3 36.3 mmol/L (22.0-26.0); PCO2 40.2 mmHg (35.0-45.0); PO2 96.7 mmHg (80.0-100.0); pH 7.573 (7.360-7.450); sO2 98.1 % (92.0-98.0)
[2021-06-28 05:26] LABS: ABSOLUTE NEUTROPHILS 9.1 thou/uL (1.4-8.2); BASOPHILS 0.1 % (0.0-2.0); HEMATOCRIT 25.7 % (37.0-47.0); HEMOGLOBIN 8.7 gm/dL (12.0-15.0); LYMPHOCYTES 2.5 % (24.0-44.0); MCH 31.4 pg (26.0-34.0); MCHC 33.9 g/dL (28.0-37.0); MCV 92.5 fL (80.0-100.0); MONOCYTES 3.1 % (1.0-8.0); PLATELET COUNT 87 thou/uL (150-400); POLYS 94.3 % (36.0-66.0); RBC 2.78 mil/uL (4.20-5.00); WBC 9.6 thou/uL (4.0-11.0)
[2021-06-28 05:47] LABS: ALBUMIN 1.7 g/dL (3.4-5.0); CALCIUM 6.6 mg/dL (8.5-10.1); PHOSPHORUS 3.7 mg/dL (2.6-4.7); TOTAL BILIRUBIN 1.1 mg/dL (0.2-1.0); TOTAL PROTEIN 5.2 g/dL (6.4-8.2)
[2021-06-28 05:58] LABS: POTASSIUM 2.5 mmol/L (3.5-5.1)
--- NOTE | 2021-06-28 07:56 | NUR ---
I HAVE REVIEWED THE STUDENT NURSE'S CHARTING ON THIS PATIEN AND AGREE WITH HER ASSESSMENTS.
[2021-06-28 08:33] LABS: BE(vivo) 14.2 mmol/L (-2 to +3); HCO3 37.4 mmol/L (22.0-26.0); PCO2 41.2 mmHg (35.0-45.0); PO2 87.5 mmHg (80.0-100.0); pH 7.576 (7.360-7.450); sO2 97.7 % (92.0-98.0)
--- NOTE | 2021-06-28 12:19 | NUR ---
RN SPOKE WITH DR WAYNE ABOUT REDRAWING PT POTSSIUM AFTER BEING REPLACED. PT IS RECEIVING ORAL POTASSIUM VIA PEG TUBE. DR WAYNE STATED RN DID NOT NEED TO REDRAW POTASSIUM.
--- NOTE | 2021-06-28 18:17 | NUR ---
PT ART LINE WAS NOT READING CORRECTLY. RN NOTIFIED [facility] ANSWERING SERVICE AND DR COX CALLED BACK AND SAID IT WAS OK TO RMOVE ART LINE. RN ROMOVED ART LINE AND HELD PRESSURE FOR 5 MINUTES. PT DID NOT RECEIVE MRI TODAY. NEUROLOGY IS AWARE. WILL CONTINUE TO MONITOR AND FOLLOW PLAN OF CARE
[2021-06-29] VITALS (24 sets, daily range): BP systolic 134–169; BP diastolic 72–107
--- NOTE | 2021-06-29 02:43 | NUR ---
TOOK OVER CARE. PT REMAINS NOT AROUSABLE AND SLEEPING IN BED, INTUBATED. OG INTACT WITH FEEDING. PATTERSON AND RECTAL TUBE TO DD. AMIODARONE DRIP AND R SUBCLAVIAN LINE INTACT. BUE AND BLE EDEMA +3, BLACK TOES NOTED ON R FOOT, REMAINS TO NOT HAVE PALPABLE PULSE. BLUE TOES ON L FOOT, WARM POSITIVE PULSE CHECK. BED ALARM ON.
[2021-06-29 04:55] LABS: ALBUMIN 1.9 g/dL (3.4-5.0); CALCIUM 6.8 mg/dL (8.5-10.1); CREATININE 3.5 mg/dL (0.6-1.0); PHOSPHORUS 3.6 mg/dL (2.6-4.7)
[2021-06-29 04:58] LABS: POTASSIUM 2.5 mmol/L (3.5-5.1)
[2021-06-29 10:39] LABS: BE(vivo) 14.3 mmol/L (-2 to +3); HCO3 37.5 mmol/L (22.0-26.0); PCO2 40.9 mmHg (35.0-45.0); PO2 78.7 mmHg (80.0-100.0)
--- NOTE | 2021-06-29 12:34 | NUR ---
Nurse assumed care of patient at 1230pm. Jose with neuro is in room a this time.
--- NOTE | 2021-06-29 16:24 | NUR ---
PT NOT PROGRESSING TOWARDS DISCHARGE TODAY, PT WAS TO GO TO MRI TODAY BUT MACHINE WAS DOWN, LATER TOLD BY ANOTHER RN THAT THE MACHINE IS BACK UP, RN COORDINATED QUICKLY POSSIBLE TO GET THE MRI DONE, FORM COMPLETED BY ELIA/CARY AND WAS SENT DOWN TO MRI SOMETIME THIS EVENING BY VESTA BAUM WHO TOOK OVER CARE FOR THE PATIENT AT 1230 EEG COMPLETED TODAY BY EVELYN RODRIGEZ MADE AWARE OF CAREPLANS. PT DOES NOT FOLLOW COMMANDS
--- NOTE | 2021-06-29 16:35 | NUR ---
DEB reviewed chart and spoke with nursing. Pt remains in ICU and on the ventilator. Pt having EEG and MRI today. Pt has been off sedation. Not following commands. DEB met with pt's s/o, Lissa, at bedside. Emotional support provided. DEB is following to assist as needed with discharge planning.
--- NOTE | 2021-06-29 18:57 | NUR ---
Patient not progressing towards plan of care as evidenced by continued need for ventilator support. Patient unable to be weaned from ventilator at this time. MRI performed today without difficulty from patient status. Amiodarone gtt infusing. Plan of care is to continue to monitor patient status and vital signs.
[2021-06-30] VITALS (24 sets, daily range): BP systolic 139–165; BP diastolic 74–96
[2021-06-30 05:52] LABS: ALBUMIN 1.9 g/dL (3.4-5.0); CREATININE 2.6 mg/dL (0.6-1.0); POTASSIUM 3.1 mmol/L (3.5-5.1)
--- NOTE | 2021-06-30 12:06 | NUR ---
DEB reviewed chart and spoke with nursing. Pt remains in the ICU. Pt is on the ventilator. Pt to have vent weaning trial today. Pt had MRI yesterday. Awaiting results of EEG. Pt has been off sedation. Pt's s/o at the bedside earlier today. DEB is following to assist as needed with discharge planning.
--- NOTE | 2021-06-30 15:14 | NUR ---
0710- IN TO SEE.--VW 0830- IN,SPOKE Sandy TOWNSEND AT BEDSIDE.--VW 1030- IN,SPOKE Sandy TOWNSEND.--VW 1300-MORE RESPONSIVE THAN SHE HAS BEEN (SEE CC REASSESSMENT). CPAP X ~1 HR EARLIER THIS AM.VERY TACHYPNIC (RR MID 30'S TO LOW 40'S CONSISTENTLY) BUT SATS OK.CARE TURNED OVER TO DIMAS,EDI ARCHITECT.--VW
--- NOTE | 2021-06-30 15:27 | NUR ---
PT IS PROGRESSING TOWARDS DISCHARGE, RN ASSUMED THE CARE FOR THIS PATIENT AROUND [phone] PT'S PARTNER CARY CAME OUT TO THE ROOM AND WANTED TO SHOW RN THAT PT IS MORE RESPONSIVE. AT THE TIME OF NEURO ASSESSMENT: PT FOLLOWS COMMANDS TO OPEN AND CLOSE MOUTH. TO OPEN AND CLOSE EYES. PT WILL TURN HEAD TO COMMAND/VISUAL STIMULI, AND OPENS EYES TO STMULI. PT'S INTEGUMENTARY SYSTEM IS COMPROMISED, DISTAL TIPS OF ALL EXTREMETIES DAMAGED AND PURPLE IN COLOR, VERY PROMINENT BLISTER AT THE TOES, WOUND CARE CONSULTED/ALL EXTREMETIES FLOATED ON A PILLOW TO SUPPORT FLUID FACILITATION [facility]
[2021-07-01] VITALS (30 sets, daily range): BP systolic 134–165; BP diastolic 74–102
[2021-07-01 10:31] LABS: HEMATOCRIT 20.4 % (37.0-47.0); HEMOGLOBIN 6.5 gm/dL (12.0-15.0); MCH 30.4 pg (26.0-34.0); MCHC 31.9 g/dL (28.0-37.0); MCV 95.3 fL (80.0-100.0); RBC 2.14 mil/uL (4.20-5.00); RDW 15.8 % (10.5-14.5); WBC 16.2 thou/uL (4.0-11.0)
--- NOTE | 2021-07-01 15:19 | NUR ---
SW reviewed chart and spoke with nursing. Pt remains in ICU. Pt is on the ventilator. Pt had cpap trial for about 2 hours earlier today. Pt is on IV abx and IV lasix. Pt is alert and able to follow commands. DEB met with pt and granddtr, Rajwinder, at bedside. Rajwinder had questions regarding discharge plan. SW explained that therapy evals will be ordered when pt is able to participate. Pt's therapy recommendations will assist with discharge disposition: inpt acute rehab, SNF, or Home with HH. SW discussed all options and provided list of HH agencies and SNFs close to [place], [place]. Pt's granddtr verbalized understanding and will discuss with pt's s/o. Pt able to not to yes/no questions. DEB is following to assist as needed with discharge planning.
--- NOTE | 2021-07-01 18:50 | NUR ---
PT PROGRESSING TOWARD PLAN OF CARE. TODAY'S WEANING TRIAL LASTED FROM 1040 TO 1230. PT WAS PUT BACK ON THE VENTILATOR DUE TO RESPIRATIONS IN THE HIGH 30'S TO LOW 40'S. PT DID NOT TRY ABG AND WILL ATTEMPT TO CPAP PT TOMORROW. PT CURRENTLY RECEIVING 1ST OF 2 UNITS OF PRBC'S FOR HGB OF 6.5. NO REACTION NOTED AND TRANSFUSION IS CURRENTLY RUNNING AT 125/HR. NEURO STATUS IS IN TACT AND PT IS ABLE TO FOLLOW COMMANDS, TRACK WITH EYES, AND NOD HEAD. PT'S GRANDDAUGHTER THEO WAS AT THE BEDSIDE MOST OF THE SHIFT. SHE REQUESTED TO SPEAK WITH CASE MANAGEMENT THIS AFTERNOON. THIS RN CONTACTED OSEAS FROM AT 1340 AND OSEAS WAS LATER AT BEDSIDE TO DISCUSS FURTHER STEPS WITH THEO. THIS RN INFORMED THEO THAT SHE WOULD BE CONTACTED WITH IMPORTANT UPDATES REGARDING THE PT.
[2021-07-02] VITALS (24 sets, daily range): BP systolic 124–159; BP diastolic 73–105
[2021-07-02 04:27] LABS: HEMATOCRIT 25.6 % (37.0-47.0); HEMOGLOBIN 8.4 gm/dL (12.0-15.0)
--- NOTE | 2021-07-02 06:35 | NUR ---
NO ACUTE EVENTS OVERNIGHT. PT FOLLOWING COMMANDS, NODS HEAD APPROPRIATELY. PT SLOWLY PROGRESSING TOWARD GOALS.
[2021-07-02 09:59] LABS: HCO3 33.9 mmol/L (22.0-26.0); PCO2 43.4 mmHg (35.0-45.0); PO2 67.5 mmHg (80.0-100.0); pH 7.511 (7.360-7.450); sO2 94.9 % (92.0-98.0)
--- NOTE | 2021-07-02 15:59 | NUR ---
SW reviewed chart and spoke with nursing. Discussed case during ICU rounds. Pt remains on the ventilator. Pt had cpap trial earlier today. Pt had blood transfusion yesterday. DEB met with pt and granddtr at bedside. Therapy evals to be ordered when pt is able to participate. DEB is following to assist as needed with discharge planning.
[2021-07-03] VITALS (24 sets, daily range): BP systolic 131–161; BP diastolic 76–104
--- NOTE | 2021-07-03 04:12 | NUR ---
PT BEEN RESTING IN NO ACUTE DISTRESS.REMAINS ON VENT.NO SEDATION.PT REMAINS ALERT AND CALM.FOLLOWS SIMPLE COMMANDS AND RESPONDS BY NODDING HEAD TO YES/NO QUESTIONS.NO S/SX OF PAIN NOTED.PT BOUNCES FROM ST TO SA/AFIB ON MONITOR HR IN LOW 100S.ON AMIDORONE DRIP,TOLERATING.BLISTERS TO SAVAGE LOWER TOES,PRAFO BOOTS MAINTAINED.PATTERSON DD,LARGE AMOUNT OF URINE.TOLERATING TUBE FEEDINGS AT 55CC/HR.ASSESSMENTS COMPLETED DOCUMENTED.WILL CON W/POC.
--- NOTE | 2021-07-03 09:57 | HC ---
[facility] [address] CONSULTATION Name: LIZETH ARNOLD Room #: 245-P ADM IN M.R.#: [id number] Admission: 06/22/21 Attend Phys: Stef Valerio MD, Discharge: Date of : 50 Report #: [id number] THIS REPORT FOR: cc: Carly Kenny MD, Jennifer S. MD Althoff,Syd Inman MD ~ DATE OF SERVICE: 07/01/2021 CHIEF COMPLAINT: Ischemic changes to the fingers and toes. HISTORY OF PRESENT ILLNESS: This is a 70-year-old female patient who was admitted with a history of coronary artery disease, hypertension and SLE and was admitted with weakness and hypotension. She was noted to have an inferior NH, was taken to the geophysical laboratory supervisor. She had low blood pressure and required significant pressor support. She has been in ICU, intubated, and was noted to have some ischemic changes to her tips of her fingers and toes, and I have been asked to see her with regard to wound care. The patient can provide no information about herself presently. PAST MEDICAL HISTORY: Positive for history of coronary artery disease with inferior myocardial infarction, cardiogenic shock, acute hypoxic respiratory failure, systemic lupus erythematosus, acute kidney injury in addition to chronic kidney disease stage III. FAMILY HISTORY: Unknown. ALLERGIES: SULFA. MEDICATIONS: Currently include acetaminophen, amiodarone, ampicillin, sulbactam, aspirin, Lipitor, chlorhexidine, clopidogrel, dopamine, famotidine, furosemide, glucagon. REVIEW OF SYSTEMS: Not obtainable due to the patient's condition. SOCIAL HISTORY: Unavailable. FAMILY HISTORY: Unavailable. PHYSICAL EXAMINATION: VITAL SIGNS: At this time include temperature 37.4, pulse 92, respiratory 29, blood pressure 157/80. GENERAL: This is a chronically ill-appearing female patient who appears to be sedated on a respirator. HEENT: Head is normocephalic. NECK: Supple. LUNGS: Clear. [facility] [address] [place] [address] CONSULTATION Name: LIZETH ARNOLD Room #: [facility]..#: [id number] Admission: 06/22/21 Attend Phys: Stef Valerio MD, Discharge: Date of : 50 Report #: [id number] HEART: Regular, without obvious murmur. ABDOMEN: Soft, nontender. EXTREMITIES: Demonstrate palpable distal pulses. However, she has ischemic changes to the tips of her toes and fingers. There is a large bullae on the right great toe. It is intact. It is not infected at this time and there is no drainage. She has ischemic changes to the tips of her fingers of the 2nd through 4th fingers of her right hand and left hand. There is no capillary refill in the distal tips of any in the toes or fingers, although the tissue still appears to be soft. NEUROLOGIC: The patient is sedated on a respirator. LABORATORY DATA: White blood cell count 16.3 with a hemoglobin of 6.5. Sodium 140, potassium 3.1, chloride 98, CO2 of 35, BUN 82, creatinine 2.6, glucose 186. Albumin is 1.9. CLINICAL IMPRESSION: 1. Ischemic changes to the tips of the toes and fingers bilaterally related to recent pressor support. 2. Acute inferior myocardial infarction with cardiogenic shock with encephalopathy. 3. Brigid-infarct with paroxysmal ventricular tachycardia, moderate aortic stenosis, dyslipidemia, paroxysmal atrial fibrillation, acute kidney injury on chronic kidney disease, severe protein-calorie malnutrition with albumin of 1.9. RECOMMENDATIONS: At this point in time, we will recommend topical Betadine "paint" and then to the areas of ischemic change and everything to be left open to air. There is no indication for debridement. I do not think rupturing the bullae on the right great toe at this time would be prudent. We will recommend Prevalon boots for pressure prophylaxis. She will need q. 2 hours turning and repositioning and low air loss surface. Continue with medical management. We will need aggressive nutritional support. She likely will lose the tips of her fingers and toes and may require debridement and revision surgery at some point, although I do not think now would be the right time. I do appreciate being asked to see her in consultation. <ELECTRONICALLY SIGNED> By: Syd Henriquez MD 07/03/21 0957 [id number] [id number] Syd Henriquez MD /nt
[2021-07-03 14:54] LABS: HEMATOCRIT 23.7 % (37.0-47.0); HEMOGLOBIN 7.6 gm/dL (12.0-15.0); MCH 28.8 pg (26.0-34.0); MCHC 31.9 g/dL (28.0-37.0); MCV 90.4 fL (80.0-100.0); RBC 2.62 mil/uL (4.20-5.00); RDW 20.7 % (10.5-14.5); WBC 14.9 thou/uL (4.0-11.0)
[2021-07-03 15:12] LABS: ALBUMIN 2.1 g/dL (3.4-5.0); CALCIUM 7.3 mg/dL (8.5-10.1); CREATININE 2.1 mg/dL (0.6-1.0); PHOSPHORUS 3.5 mg/dL (2.6-4.7); POTASSIUM 3.2 mmol/L (3.5-5.1)
--- NOTE | 2021-07-03 15:23 | NUR ---
SW reviewed chart and spoke with nursing. Discussed during ICU rounds. Pt had cpap trial earlier today. Pt is on IV abx. Pt's family has been at the bedside throughout the day. No weekend discharge planned. Therapy evals will need to be ordered when pt is able to participate. DEB is following to assist as needed with discharge planning.
--- NOTE | 2021-07-03 18:43 | NUR ---
Pt stable throughout day, significant other here at bedside most of the day.
[2021-07-04] VITALS (27 sets, daily range): BP systolic 106–157; BP diastolic 64–96
--- NOTE | 2021-07-04 04:08 | NUR ---
PT HAS BEEN RESTING IN NO ACUTE DISTRESS.REMAINS ON VENT.NO SEDATION.PT ALERT AND CALM.RESPONDS TO SIMPLE COMMANDS VIA HEAD NODDING.ASSESSMENT COMPLETED DOCUMENTED.PLAN TO CONT WITH POC.
[2021-07-04 05:01] LABS: ALBUMIN 2.1 g/dL (3.4-5.0); CALCIUM 7.4 mg/dL (8.5-10.1); CREATININE 2.1 mg/dL (0.6-1.0); POTASSIUM 3.4 mmol/L (3.5-5.1); TOTAL BILIRUBIN 0.8 mg/dL (0.2-1.0); TOTAL PROTEIN 5.8 g/dL (6.4-8.2)
[2021-07-04 05:02] LABS: BASOPHILS 0.3 % (0.0-2.0); HEMATOCRIT 22.8 % (37.0-47.0); HEMOGLOBIN 7.4 gm/dL (12.0-15.0); LYMPHOCYTES 3.6 % (24.0-44.0); MCH 29.6 pg (26.0-34.0); MCHC 32.3 g/dL (28.0-37.0); MCV 91.6 fL (80.0-100.0); MONOCYTES 5.5 % (1.0-8.0); PLATELET COUNT 144 thou/uL (150-400); POLYS 90.6 % (36.0-66.0); RBC 2.49 mil/uL (4.20-5.00); RDW 20.6 % (10.5-14.5); WBC 14.4 thou/uL (4.0-11.0)
[2021-07-04 05:17] LABS: BE(vivo) 5.7 mmol/L (-2 to +3); HCO3 28.2 mmol/L (22.0-26.0); PCO2 32.1 mmHg (35.0-45.0); PO2 88.4 mmHg (80.0-100.0); pH 7.561 (7.360-7.450); sO2 97.8 % (92.0-98.0)
--- NOTE | 2021-07-04 09:39 | NUR ---
PT HAS INCREASED WORK OF BREATHING THIS MORNING WHICH IS A CHANGE IN PATIENT CONDITION RR IN HIGH 40'S, DR. LYONS AND DR. BARRY CALLED, PRECEDEX DRIP STARTED, STAT CHEST XRAY ORDER. ABG ORDER AND ALSO GIVEN THE ORDER TO START PROPOFOL AND FENTANYL DRIP. PEAK INSPIRATORY PRESSURES IN HIGH 40'S AT THIS TIME. PT NOT RUNNING A FEVER. PT HAD CHEST XRAY PERFORMED THIS AM AT APPROX 0730 WITH NO CHANGES FOUND. STAT ORDERED FOR NOW.
[2021-07-04 09:47] LABS: BE(vivo) 7.3 mmol/L (-2 to +3); PCO2 46.9 mmHg (35.0-45.0); PO2 70.3 mmHg (80.0-100.0); pH 7.452 (7.360-7.450); sO2 94.7 % (92.0-98.0)
[2021-07-04 12:59] LABS: CALCIUM 7.2 mg/dL (8.5-10.1); CREATININE 2.1 mg/dL (0.6-1.0); POTASSIUM 4.5 mmol/L (3.5-5.1)
[2021-07-04 16:23] LABS: CREATININE 2.1 mg/dL (0.6-1.0)
[2021-07-04 16:30] LABS: POTASSIUM 3.5 mmol/L (3.5-5.1)
[2021-07-05] VITALS (30 sets, daily range): BP systolic 93–141; BP diastolic 56–82
--- NOTE | 2021-07-05 04:02 | NUR ---
PT REMAINS ON THE VENT.LIGHTLY SEDATED WITH PROPOFOL AND FENTANYL.PT HAVING PERIODS WHERE SHE GETS RESTLESS AND HER WORK OF BREATHING INCREASES ALONG WITH INSPIRATORY PEAK PRESSURES.PT SUCTIONED COUPLE OF TIMES WITH LARGE CHUNKS OF DRY BLOOD SEEN IN INLINE SUCTION AND THAT SEEMS TO HELP THE PATIENT STABILIZES IN HER BREATHING AND RESTLESSESS.NEB TX PER RT.LUNGS SOUNDS COARSE BILATERALLY.PT AWAKE AT TIMES AND SEEMS TO FOLLOW SIMPLE COMMANDS.MAG REPLACED.NO OTHER CONCERNS NOTED SO FAR THIS SHIFT.WILL CONT WITH POC.
[2021-07-05 04:22] LABS: HEMOGLOBIN 6.7 gm/dL (12.0-15.0); MCH 29.1 pg (26.0-34.0); MCHC 31.3 g/dL (28.0-37.0)
[2021-07-05 04:23] LABS: HEMATOCRIT 21.4 % (37.0-47.0); RBC 2.3 mil/uL (4.20-5.00); RDW 21.2 % (10.5-14.5); WBC 14.9 thou/uL (4.0-11.0)
[2021-07-05 04:38] LABS: CALCIUM 7.3 mg/dL (8.5-10.1); CREATININE 1.9 mg/dL (0.6-1.0); POTASSIUM 3.8 mmol/L (3.5-5.1)
[2021-07-05 08:51] LABS: URINE BILIRUBIN NEGATIVE (Negative); URINE BLOOD 2+ (Negative); URINE CLARITY CLEAR; URINE COLOR YELLOW; URINE GLUCOSE-RANDOM* 3+ (Negative); URINE KETONES NEGATIVE (Negative); URINE LEUKOCYTES-REFLEX NEGATIVE (Negative); URINE NITRITE-REFLEX NEGATIVE (Negative); URINE PROTEIN (DIPSTICK) TRACE (Negative); URINE SPECIFIC GRAVITY 1.015 (1.005-1.035); URINE UROBILINOGEN 0.2 E.U./dl (0.2-1.0)
[2021-07-05 11:44] LABS: CASTS None Seen /LPF (None Seen); MUCUS 0-3 Light strn/LPF (None Seen); SQUAMOUS 0-3 Few /LPF (0-3)
[2021-07-05 11:45] LABS: BACTERIA-REFLEX None Seen /HPF (None Seen); CRYSTALS None Seen /LPF (None Seen); URINE RBC 1-2 Rare /HPF (NONE SEEN); URINE WBC-REFLEX 0-5 Rare /HPF (0-5)
--- NOTE | 2021-07-05 20:03 | NUR ---
PT IS NOT PROGRESSING TOWARDS DISCHARGE AT THIS TIME, PT IS UNABLE TO TOLERATE THE VENTILATOR EVIDENCED BY RAPID RESPIRATORY RATE, AND DIFFICULT APPEARANCE. RN WENT UP HIGHER ON THE SEDATION AND PT WAS VISIBLY MORE COMFORTABLE. DUE TO PT'S INTOLERANCE OF THE VENTILATOR, CPAP TRIAL WAS NOT DONE TODAY. COMMUNICATIONS SURROUNDING POSSIBILITY OF TRACH TUBE, HGB WAS LOW AT 6.7, 2 UNITS ORDERED BY MD MARTINES. RASHAD TOWNSEND AT THE BEDSIDE, RN PROVIDED UPDATES.
[2021-07-06] VITALS (78 sets, daily range): BP systolic 84–138; BP diastolic 49–86
[2021-07-06 01:28] LABS: HEMATOCRIT 26.7 % (37.0-47.0); HEMOGLOBIN 8.5 gm/dL (12.0-15.0); MCH 29.1 pg (26.0-34.0); RBC 2.93 mil/uL (4.20-5.00); RDW 18.6 % (10.5-14.5); WBC 12.9 thou/uL (4.0-11.0)
[2021-07-06 02:14] LABS: ALBUMIN 1.9 g/dL (3.4-5.0); CALCIUM 7.2 mg/dL (8.5-10.1); CREATININE 1.7 mg/dL (0.6-1.0); PHOSPHORUS 3.8 mg/dL (2.6-4.7); POTASSIUM 4.1 mmol/L (3.5-5.1)
--- NOTE | 2021-07-06 07:33 | NUR ---
Patient not progressing towards plan of care as evidenced by continued dependence on mechanical ventilation for oxygen support. Patient's toe nails are beginning to be necrotic.
--- NOTE | 2021-07-06 07:35 | EKG ---
[address] [address] ELECTROCARDIOGRAM REPORT Name: LIZETH ARNOLD Room #: [facility]- ADM IN M.R.#: [id number] Admission: 06/22/21 Attend Phys: Stef Valerio MD, Discharge: Date of : 50 Report #: [id number] [facility] Test Date: 2021-07-04 Test Time: 10:03:45 Pat Name: LIZETH ARNOLD Department: Room: [facility] Gender: F Senior Research Scientist: LORI : 1950 Requested By: Raul Cloud Order Number: [id number] MD: Jesus Russ Measurements Intervals [place] Rate: 90 P: -11 NH: 133 QRS: 13 QRSD: 77 T: -28 QT: 369 QTc: 452 Interpretive Statements Sinus rhythm Inferior infarct, age indeterminate Compared to ECG 06/24/2021 07:26:10 Ectopic atrial rhythm no longer present ST (T wave) deviation no longer present Prolonged QT interval no longer present Myocardial infarct finding still present Electronically Signed On 07-06-2021 7:35:45 FUNDING ANALYST by Jesus Russ [email or web address] <ELECTRONICALLY SIGNED> By: Jesus Russ MD, FACC 07/06/21 0735 1003 1003 Jesus Russ MD, [facility] /EPI
--- NOTE | 2021-07-06 09:00 | NUR ---
DR STONE REQUESTS THIS PT LOVENOX TO BE HELD BUT CLOPIDOGREL TO CONTINUE SCHD. PT WILL HAVE A EGD TODAY TO R/O BLEEDING INTERNALLY. THIS PT DPOA IS AT THE BEDSIDE AND UPDATED TO THE PLANS TODAY. PT IS PROGRESSING SLOWLY TO THE POC EVIDENCED BY MINIMAL 02 REQUIREMENTS AND LOWER SEDATION. DR STONE INDICATES SHE WILL BE READY FOR TRACH/PEG TOMORROW.
--- NOTE | 2021-07-06 14:51 | NUR ---
SW reviewed chart and spoke with nursing. Case discussed in ICU rounds. Pt remains intubated. Plan for trach/peg placement tomorrow. Pt is on the schedule for 729. GI consulted today due to drop in hemoglobin. Pt may have an EGD today. Pt's s/o at bedside and agreeable with plan. SW is following to assist as needed with discharge planning.
[2021-07-06 18:32] LABS: CALCIUM 7.6 mg/dL (8.5-10.1); CREATININE 1.5 mg/dL (0.6-1.0); POTASSIUM 4.4 mmol/L (3.5-5.1)
--- NOTE | 2021-07-06 19:46 | NUR ---
PT HYPERNATREMIA IS CORRECTED, NEPHOROLOGY IS NOTIFIED, AND ORDERS TO DECREASE THE D5 NS FROM 200ML/H TO 80ML/H.
[2021-07-07] VITALS (86 sets, daily range): BP systolic 99–133; BP diastolic 57–83
[2021-07-07 05:26] LABS: HEMATOCRIT 25.5 % (37.0-47.0); HEMOGLOBIN 8.7 gm/dL (12.0-15.0); MCH 30.8 pg (26.0-34.0); MCHC 33.9 g/dL (28.0-37.0); MCV 90.7 fL (80.0-100.0); RBC 2.81 mil/uL (4.20-5.00); RDW 17.8 % (10.5-14.5); WBC 9.4 thou/uL (4.0-11.0)
[2021-07-07 05:30] LABS: BE(vivo) -1.9 mmol/L (-2 to +3); HCO3 21.9 mmol/L (22.0-26.0); PCO2 33.5 mmHg (35.0-45.0); pH 7.434 (7.360-7.450); sO2 96.8 % (92.0-98.0)
[2021-07-07 06:07] LABS: ALBUMIN 1.8 g/dL (3.4-5.0); CALCIUM 7.6 mg/dL (8.5-10.1); CREATININE 1.3 mg/dL (0.6-1.0); PHOSPHORUS 4.5 mg/dL (2.5-4.9); POTASSIUM 3.8 mmol/L (3.5-5.1)
--- NOTE | 2021-07-07 08:43 | NUR ---
Pt is not progressing towards plan of care as evidenced by continued dependence on mechanical vent support. Pt's extremities are becoming necrotic
--- NOTE | 2021-07-07 09:01 | NUR ---
SPOKE TO PTS GRANDDAUGHTER THEO AT 0730 TO GET CONSENT FOR PROCEDURE SPOKE TO HER AGAIN AT 0901 AND SHE ASKED IF I WOULD CALL HER WHEN SHE IS BACK FROM THE OR PT LEFT FOR THE OR AT 0754
--- NOTE | 2021-07-07 11:47 | NUR ---
SW reviewed chart and spoke with nursing. Discussed case during ICU rounds. Pt had trach/peg placement this morning. Pt had EGD yesterday. DEB met with pt and granddtrRajwinder, at the bedside. Discussed LTAC placement for vent weaning and higher level of medical care. Provided LTAC list for pt and family to review. Will fax LTAC referral to facility of family's choice. DEB is following to assist as needed with discharge planning.
--- NOTE | 2021-07-07 15:59 | P ---
[facility] [place] [address] PROCEDURE REPORT Name: LIZETH ARNOLD Room #: 245-P ADM IN M.R.#: [id number] Admission: 06/22/21 Attend Phys: Stef Valerio MD, Discharge: Date of : 50 Report #: [id number] THIS REPORT FOR: cc: Carly Kenny MD, Jennifer S. MD McElhinney, Christian C. MD ~ cc: Gary Schulte MD, Raul Cloud MD, Silvano Milner MD, Gilberto Silverman MD DATE OF SERVICE: 07/06/2021 PROCEDURE PERFORMED: Upper endoscopy with bleeding control. HISTORY OF PRESENT ILLNESS: The patient is a 70-year-old female who was admitted with an acute MD on 06/22/2021. She underwent emergent cardiac catheterization. She remains on a vent since admission. Reason for GI consultation is GI bleed and anemia. She has now been transfused over the course of this hospitalization, a total of 6 units of packed cells. Most recent one was today yesterday after her hemoglobin dropped to 6.7. Her hemoglobin today after transfusion is 8.5. Stools were Hemoccult tested and positive on the . Patient has been on Plavix and Lovenox, unable to give any other history from the patient as she is sedated on a vent, currently in the ICU. Plan is for upper endoscopy. DESCRIPTION OF PROCEDURE: The risks and benefits of the procedure were explained to the patient's durable power of tester printed circuit boards. Those risks including but not limited to bleeding, perforation, the risk of sedation. They understood these risks and gave informed consent. The procedure was performed in the ICU at the bedside. The patient again is already on a vent and is already on a propofol drip and sedated. Next, using an Olympus upper endoscope, the scope was placed in the patient's mouth and advanced under direct vision through the esophagus, stomach, and into the second portion of the duodenum. Prior to placing the scope, I did remove the OG tube. There was no evidence of blood in the OG tube. In the esophagus, there were a total of 4 ulcers. The most proximal was just a few millimeters in size, clean white based. The largest was in the mid esophagus, approximately 1.5 cm ulcer, clean white based. Two 5-8 mm clean white based ulcers in the distal esophagus just above the GE junction, grade B erosive esophagitis was also noted right at the GE junction. There initially was no evidence of blood in the esophagus. I advanced the scope into the patient's stomach, a significant moderate gastritis was seen. No evidence of bleeding. No evidence of old blood throughout the exam today. I did not obtain biopsies as the patient has been on anticoagulation therapy. The gastric antrum showed mild gastritis. The pylorus was normal and patent. The duodenal bulb, first and second portion were all normal. As the scope was then brought back up into the patient's esophagus, there was a tiny amount of blood noted at the proximal esophagus at the most proximal ulceration. There was a tiny amount [address] [address] PROCEDURE REPORT Name: LIZETH ARNOLD Room #: 245-P [facility] IN M.R.#: [id number] Admission: 06/22/21 Attend Phys: Stef Valerio MD, Discharge: Date of : 50 Report #: [id number] of active bleeding. I did treat this with a 7-Turkish bipolar cautery. No further bleeding was noted after cauterization. At this point, the scope was then withdrawn and the procedure terminated. The patient tolerated the procedure well. IMPRESSION: 1. Several ulcerations in the esophagus as described above. No active bleeding until the scope passed to the most proximal one. This was treated. No further bleeding was noted. There was no evidence of old blood throughout the exam today. I suspect the patient had recent bleed from these ulcerations, although need to consider other options as well. 2. Diffuse gastritis. No active bleeding. 3. Grade B erosive esophagitis at the GE junction. 4. Otherwise normal upper endoscopy. RECOMMENDATIONS: 1. We will leave the OG out at this time. 2. We have switched now from Pepcid to PPI therapy. 3. Plan is for a trach and PEG tube tomorrow per Dr. Schulte. 4. If signs of continued bleeding, may need to consider colonoscopy in the near future. We will continue to monitor hemoglobin closely. Thank you for allowing me to participate in her care. <ELECTRONICALLY SIGNED> By: Hung Frazier MD 07/07/21 1559 1417 42 Hung Frazier MD /nt
[2021-07-08] VITALS (46 sets, daily range): BP systolic 104–181; BP diastolic 63–103
[2021-07-08 05:50] LABS: HEMATOCRIT 27.4 % (37.0-47.0); HEMOGLOBIN 8.9 gm/dL (12.0-15.0); MCH 29.7 pg (26.0-34.0); MCHC 32.6 g/dL (28.0-37.0); MCV 91.2 fL (80.0-100.0); RDW 18.3 % (10.5-14.5); WBC 12.3 thou/uL (4.0-11.0)
[2021-07-08 06:36] LABS: ALBUMIN 1.9 g/dL (3.4-5.0); CREATININE 1.3 mg/dL (0.6-1.0); PHOSPHORUS 4.5 mg/dL (2.5-4.9)
[2021-07-08 06:42] LABS: POTASSIUM 4.9 mmol/L (3.5-5.1)
--- NOTE | 2021-07-08 11:44 | NUR ---
DEB reviewed chart and spoke with nursing. Case discussed in ICU rounds. Pt is s/p trach/peg placement. Tube feedings are currently on hold due to high residuals. Pt is on fentanyl. May be restarted on precedex. No weekend discharge planned. DEB has discussed LTAC placement with pt's granddaughter. Will send LTAC referral on Tuesday. DEB is following to assist as needed with discharge planning.
[2021-07-08 13:56] LABS: APTT 23.7 Seconds (24.5-32.8); INR 0.96; PROTIME 10.5 Seconds (10.5-12.1)
[2021-07-09] VITALS (35 sets, daily range): BP systolic 110–193; BP diastolic 36–127
[2021-07-09 05:37] LABS: HEMATOCRIT 24.9 % (37.0-47.0); HEMOGLOBIN 8.2 gm/dL (12.0-15.0); MCH 30.2 pg (26.0-34.0); MCHC 33.1 g/dL (28.0-37.0); MCV 91.3 fL (80.0-100.0); RBC 2.72 mil/uL (4.20-5.00); RDW 18.4 % (10.5-14.5); WBC 10.9 thou/uL (4.0-11.0)
[2021-07-09 06:27] LABS: ALBUMIN 1.7 g/dL (3.4-5.0); CALCIUM 8.1 mg/dL (8.5-10.1); CREATININE 1.4 mg/dL (0.6-1.0); PHOSPHORUS 4.5 mg/dL (2.5-4.9)
[2021-07-09 06:45] LABS: POTASSIUM 3.5 mmol/L (3.5-5.1)
--- NOTE | 2021-07-09 23:24 | NUR ---
PT HAS GASPING TO SOMEWHAT GUPPY RESPIRATIONS RATE 33 DR LYONS NOTIFIED ATIVAN 2 MG IV ORDERED AND GIVEN. WILL CONT TO MONITOR
[2021-07-10] VITALS (25 sets, daily range): BP systolic 112–176; BP diastolic 62–95
[2021-07-10 05:37] LABS: HEMOGLOBIN 7.6 gm/dL (12.0-15.0); MCH 30.7 pg (26.0-34.0); MCHC 33.2 g/dL (28.0-37.0); MCV 92.5 fL (80.0-100.0); PLATELET COUNT 73 thou/uL (150-400); RBC 2.49 mil/uL (4.20-5.00); RDW 18.4 % (10.5-14.5); WBC 9.3 thou/uL (4.0-11.0)
[2021-07-10 05:54] LABS: CREATININE 1.4 mg/dL (0.6-1.0)
[2021-07-10 05:59] LABS: ALBUMIN 1.5 g/dL (3.4-5.0); PHOSPHORUS 3.7 mg/dL (2.5-4.9)
--- NOTE | 2021-07-10 06:00 | NUR ---
REMAINS TRACHED AND VENTED. SEDATED WITH FENTANYL AND PRECEDEX GTTS NOT PROGRESSING TOWARD GOALS. BILAT TOES NUCROTIC. WILL CONT TO MONITOR
[2021-07-10 06:32] LABS: POTASSIUM 2.7 mmol/L (3.5-5.1)
[2021-07-10 11:13] LABS: ABSOLUTE NEUTROPHILS 8.8 thou/uL (1.4-8.2)
[2021-07-10 11:14] LABS: ANISOCYTOSIS 1+; LARGE PLATELETS FEW; POIKILOCYTOSIS SLIGHT
[2021-07-11] VITALS (25 sets, daily range): BP systolic 108–180; BP diastolic 50–104
[2021-07-11 04:26] LABS: HEMATOCRIT 24.9 % (37.0-47.0); MCH 29.5 pg (26.0-34.0); MCHC 32.3 g/dL (28.0-37.0); MCV 91.5 fL (80.0-100.0); RBC 2.72 mil/uL (4.20-5.00); RDW 18.9 % (10.5-14.5); WBC 7.6 thou/uL (4.0-11.0)
[2021-07-11 04:39] LABS: CALCIUM 8.3 mg/dL (8.5-10.1); CREATININE 1.2 mg/dL (0.6-1.0); POTASSIUM 3.5 mmol/L (3.5-5.1)
--- NOTE | 2021-07-11 06:29 | NUR ---
This RN spoke with [facility] this morning at 0615. Patients referral number is [phone]. [facility] will not follow daily at this time. RN to call with change in neuro status or plans to extubate or withdraw care.
--- NOTE | 2021-07-11 10:03 | NUR ---
ASSUMED CARE OF PT AT [address] DUNAWAY AT BEDSIDE AT 0900, ORDERS GIVEN TO CHANGE UP SOME OF THE PTS MEDICATIONS PTS SIGNIFICANT OTHER AT BEDSIDE AT 0945, UPDATED HER PER POC
[2021-07-11 18:44] LABS: URINE BILIRUBIN NEGATIVE (Negative); URINE BLOOD 3+ (Negative); URINE CLARITY CLEAR; URINE COLOR YELLOW; URINE GLUCOSE-RANDOM* NEGATIVE (Negative); URINE KETONES NEGATIVE (Negative); URINE LEUKOCYTES-REFLEX NEGATIVE (Negative); URINE NITRITE-REFLEX NEGATIVE (Negative); URINE PROTEIN (DIPSTICK) TRACE (Negative); URINE SPECIFIC GRAVITY 1.015 (1.005-1.035)
[2021-07-11 18:59] LABS: CASTS None Seen /LPF (None Seen); SQUAMOUS 0-3 Few /LPF (0-3)
[2021-07-11 19:00] LABS: BACTERIA-REFLEX 1-9 Few /HPF (None Seen); CRYSTALS None Seen /LPF (None Seen); URINE RBC 3-10 Few /HPF (NONE SEEN); URINE WBC-REFLEX 0-5 Rare /HPF (0-5)
[2021-07-12] VITALS (23 sets, daily range): BP systolic 122–156; BP diastolic 51–86
[2021-07-12 05:47] LABS: CALCIUM 8.4 mg/dL (8.5-10.1); CREATININE 1.2 mg/dL (0.6-1.0)
--- NOTE | 2021-07-12 07:27 | NUR ---
Patient is not progressing towards plan of care as evidenced by no significant improvement in neuro response.
[2021-07-12 08:32] LABS: HEMATOCRIT 24.6 % (37.0-47.0); HEMOGLOBIN 7.8 gm/dL (12.0-15.0); MCH 29.2 pg (26.0-34.0); MCHC 31.6 g/dL (28.0-37.0); MCV 92.5 fL (80.0-100.0); RBC 2.66 mil/uL (4.20-5.00); RDW 18.9 % (10.5-14.5); WBC 7.2 thou/uL (4.0-11.0)
[2021-07-13] VITALS (19 sets, daily range): BP systolic 104–198; BP diastolic 38–79
[2021-07-13 06:08] LABS: CALCIUM 8.2 mg/dL (8.5-10.1); CREATININE 1.1 mg/dL (0.6-1.0); POTASSIUM 3.3 mmol/L (3.5-5.1)
[2021-07-13 10:29] LABS: BE(vivo) 2.9 mmol/L (-2 to +3); HCO3 28.5 mmol/L (22.0-26.0); PCO2 49.1 mmHg (35.0-45.0); PO2 94.5 mmHg (80.0-100.0); pH 7.381 (7.360-7.450)
--- NOTE | 2021-07-13 11:52 | NUR ---
DEB reviewed chart and spoke with nursing. Case discussed during ICU rounds. Pt is intubated. Pt is s/p trach/peg placement on 07/07. Pt is not following commands. Pt's code status changed to DNR over the holiday weekend. Palliative care consult ordered to discuss plan of care/treatment goals with pt's family. DPOA ppwk on pt's chart. DEB discussed with palliative care TOBACCO CONDITIONER. Awaiting input from family at this time regarding plan of care. DEB is following to assist as needed with discharge planning.
--- NOTE | 2021-07-13 20:06 | NUR ---
PT IS PROGRESSING TOWARDS PLAN OF CARE GOALS, DISCUSSED WITH PALLIAITVE AND TWO DPOAs TO DISCUSS/REASSESS PT'S GOAL OF CARE.
[2021-07-14] VITALS (30 sets, daily range): BP systolic 101–172; BP diastolic 57–91
[2021-07-14 05:08] LABS: BE(vivo) 0.5 mmol/L (-2 to +3); HCO3 25.3 mmol/L (22.0-26.0); PCO2 41.4 mmHg (35.0-45.0); pH 7.404 (7.360-7.450); sO2 97.2 % (92.0-98.0)
--- NOTE | 2021-07-14 06:00 | NUR ---
REMAINS TRACHED AND VENTED. FOLLOWS NO COMMANDS ON NO SEDATION NOT PROGRESSING TOWARD GOALS. FAMILY YO MEET WITH DOCTORS ON TUESDAY TO DISCUSS POSSIBLE COMFORT MEASURES
[2021-07-14 06:04] LABS: HEMOGLOBIN 8.3 gm/dL (12.0-15.0); MCH 30.1 pg (26.0-34.0); MCHC 33.1 g/dL (28.0-37.0); MCV 90.9 fL (80.0-100.0); PLATELET COUNT 97 thou/uL (150-400); RBC 2.75 mil/uL (4.20-5.00); RDW 17.7 % (10.5-14.5); WBC 7.1 thou/uL (4.0-11.0)
[2021-07-14 06:28] LABS: ALBUMIN 1.5 g/dL (3.4-5.0); CALCIUM 8.2 mg/dL (8.5-10.1); CREATININE 0.9 mg/dL (0.6-1.0); TOTAL BILIRUBIN 0.5 mg/dL (0.2-1.0); TOTAL PROTEIN 5.6 g/dL (6.4-8.2)
--- NOTE | 2021-07-14 13:20 | NUR ---
ONGOING PROBLEM W TRACH. AUD LEAK ON ARRIVAL INTO ROOM. R.T. ATBEDSIDE & CUFF CHECKED. PT IS NOT GETTING HER SET VOLUMES. ONLT RECEIVING <200MLS'S/BREATH. PT IN ACVC MODE, PIP'S HIGH TEENS. SATS ~95-96% AUD AIR LEAK PERSISTS. SPOKE SEV X'S W R.Paul & RE:ISSUE. CALL TO DR. STONE TO INFORM. R.T. IN ROOM. GRAND-DTR HAS BEEN AT [facility] ALL DAY. SPOKE AT LENGTH W EARLIER THIS MORNING.--VW
[2021-07-14 14:04] LABS: ANISOCYTOSIS 2+
--- NOTE | 2021-07-14 14:22 | NUR ---
SW reviewed chart and spoke with nursing. Case discussed during ICU rounds. Pt remains intubated. Pt is not responding or following commands. Tube feeding via OG tube. Palliative care HEAVY EQUIPMENT TECHNICIAN has scheduled a family meeting for , 07/16 at 1200. Pt's granddtr at the bedside earlier today. DEB is following to assist as needed with discharge planning.
--- NOTE | 2021-07-14 22:23 | NUR ---
PT'S LIFE PARTNER, SAIRA, NOTIFIED OF ROOM CHANGE
[2021-07-15] VITALS (20 sets, daily range): BP systolic 100–170; BP diastolic 63–88
--- NOTE | 2021-07-15 09:38 | HC ---
[facility] [place] [address] CONSULTATION Name: LIZETH ARNOLD Room #: 245-P ADM IN M.R.#: [id number] Admission: 06/22/21 Attend Phys: Stef Valerio MD, Discharge: Date of : 50 Report #: [id number] THIS REPORT FOR: cc: Calry Kenny MD, Jennifer S. MD Khosla,Yoel Llanos MD ~ DATE OF SERVICE: 06/23/2021 HISTORY OF PRESENT ILLNESS: This is a 70-year-old female patient who was evaluated by me for prognostication because the patient apparently was not waking up. I talked to the nurse. I reviewed the record. This patient is pretty significantly unstable at the moment. She is intubated and she apparently went into a cardiogenic shock. She is having multiple issues. The last GFR is 11. Her last sodium is 123. Last platelet count is only 71. She is pretty critically ill. REVIEW OF SYSTEMS: Indicates that this patient had a stent put in. Multiple consultants are involved. It looks like from cardiology notes, she has an inferior NV with a shock, kriss-infarct, paroxysmal ventricular tachycardia, acute renal shutdown, severe anemia, respiratory failure, aortic stenosis. Daughter does not know if the patient had a stroke, but it was not major if she did have one. She was functional. This was the 14-point review of systems I can get. PAST MEDICAL HISTORY: Negative for any major stroke according to the daughter. FAMILY HISTORY: Noncontributory. SOCIAL HISTORY: If I understood correct from the daughter, she indicated she was functional and was able to do things for herself. She lives with ____. PHYSICAL EXAMINATION: GENERAL: The patient's examination is pretty limited. She is not responsive to me. Pupils are small, but she is getting fentanyl. It is difficult to tell if it is reactive or not. She has no reflexes and the nurses have not seen any cough and gag. She is requiring sedation because she is having some involuntary movements. She is moderately ____. VITAL SIGNS: Blood pressure is 104/61, pulse is 81, temperature is 98.7. LABORATORY DATA: Labs have been described above. She is intubated. Cardiology note has been described. IMPRESSION: We will start evaluating this patient for encephalopathy. We will do an EEG first, and once the patient stabilizes, then we would like to do the CT scan as the first testing and then we may have to [place] [address] CONSULTATION Name: LIZETH ARNOLD Room #: 245-P [facility] IN M.R.#: [id number] Admission: 06/22/21 Attend Phys: Stef Valerio MD, Discharge: Date of : 50 Report #: [id number] Hopefully, we will be able to cut back the sedation once testing is done for the EEG. I discussed all of it with the daughter, and she understands and wants to follow this plan. <ELECTRONICALLY SIGNED> By: Yoel Elizabeth MD 07/15/21 0938 1520 2159 Yoel Elizabeth MD /nt
--- NOTE | 2021-07-15 09:41 | EEG ---
[facility] [place] [address] ELECTROENCEPHALOGRAM Name: LIZETH ARNOLD Room #: 245-P ADM IN M.R.#: [id number] Admission: 06/22/21 Attend Phys: Stef Valerio MD Discharge: Date of : 50 Report #: [id number] THIS REPORT FOR: //name// DATE OF SERVICE: 06/29/2021 The patient is being evaluated for altered mental status. EEG still shows a lot of artifact and it becomes difficult to tell what his artifact and what is cortical activity. Cortical activity appeared to be present, but it is not possible to tell the frequency because of the artifact. Photic stimulation is unremarkable. IMPRESSION: Impression is very difficult to form in this patient because a lot of artifact is present. The only thing which can be said about this EEG is that cortical activity is present and no epileptiform activity was noticed. Thank you very much for this referral. <ELECTRONICALLY SIGNED> By: Yoel Elizabeth MD 07/15/21 0941 1510 1515 Yoel Elizabeth MD /nt
--- NOTE | 2021-07-15 11:23 | NUR ---
THIS QUALITY ASSURANCE/R&D LAB TECHNICIAN SAT DOWN AND VISITED WITH THE PATIENT'S GRANDDAUGHTER, THEO. WE DISCUSSED THEIR RELATIONSHIP AND HER GRANDMOTHERS PRIDE IN THEO BEING AN ARMY RESERVIST. WE DISCUSSED HOW THEO HAS BEEN COPING WITH THE CHALLENGES WITHIN HER OWN FAMILY. SHE SEEMS TO HAVE A PRETTY LEVEL HEADED APPROACH AND DOING WHAT SHE CAN DO IN A DIFFCULT SITUATION.
--- NOTE | 2021-07-15 17:08 | NUR ---
Nursing Note Patient continues to have air leak in trach cuff; Dr. Schulte and Dr. Castellano at bedside to troubleshoot with RT; discussed POC with granddaughter; palliative care meeting tomorrow at noon. VSS; patient remains unresponsive on trach/vent at 30%. pt has weak gag, cough, and corneal; none of which are spontaneous. tolering TF through PEG. FMS in place, biswas to DD; good UO with lasix admin. Pain and sedation medication given (see eMAR) q2 turn and oral care. on CLR. Critical vanc level called by previous shift and this RN; per ID doctor; do not call with critical vanc levels- pharmacy is managing. Wound care changed dressings/pictures. R SC TL CL in place Trach care completed by RT Granddaughter remains at bedside Will continue to monitor Alpesh HOBBS RN
[2021-07-16] VITALS (8 sets, daily range): BP systolic 145–174; BP diastolic 79–96
--- NOTE | 2021-07-16 12:07 | NUR ---
[id number]-PTG AT BEDSIDE. UPDATE GIVEN. [facility] STILL SCHED FOR 1200 TODAY.--VW 1145-S.O. CARY IN TO SEE PT. SILVANO NP, HERE. ALL 3 TOGETHER FOR [facility].--VW
--- NOTE | 2021-07-16 13:34 | NUR ---
SW reviewed chart and spoke with nursing. Case discussed during ICU rounds. Pt remains intubated. Family meeting scheduled for today at 1200 with palliative care DEVELOPMENT ADVISOR. SW met with pt and granddtr at bedside. Pt's granddtr states that she and pt's s/o, Lissa, will be present at the meeting. No questions for SW at this time. DEB was notified after the family meeting that pt's family have elected to initiate comfort care measures today. SW is available to assist as needed.
== END 2021-07-16 17:15 | DRG 3 ==
LOC: ER 16:28 → ICU 19:53
PROVIDERS: Anesthesiology; Hospitalist; Internal Medicine; Internal Medicine Nephrology; Internal Medicine Pulmonary Disease; Nurse Practitioner; Nurse Practitioner Adult Health; Pediatrics; Psychiatry & Neurology Neurology; Radiology Vascular & Interventional Radiology; Specialist; ADMIT Internal Medicine Cardiovascular Disease; ATTEND Internal Medicine Cardiovascular Disease
PROC: 5A1955Z Respiratory Ventilation, Greater than 96 Consecutive Hours (ICD-10-PCS; principal; 2021-06-22)
PROC: 0BH17EZ Insertion of Endotracheal Airway into Trachea, Via Natural or Artificial Opening (ICD-10-PCS; principal; 2021-06-22)
PROC: 5A09357 Assistance with Respiratory Ventilation, Less than 24 Consecutive Hours, Continuous Positive Airway Pressure (ICD-10-PCS; principal; 2021-06-22)
PROC: 30233N1 Transfusion of Nonautologous Red Blood Cells into Peripheral Vein, Percutaneous Approach (ICD-10-PCS; principal; 2021-06-22)
PROC: 02HV33Z Insertion of Infusion Device into Superior Vena Cava, Percutaneous Approach (ICD-10-PCS; 2021-06-22)
PROC: B548ZZA Ultrasonography of Superior Vena Cava, Guidance (ICD-10-PCS; 2021-06-22)
PROC: 4A023N8 Measurement of Cardiac Sampling and Pressure, Bilateral, Percutaneous Approach (ICD-10-PCS; 2021-06-26)
PROC: B211YZZ Fluoroscopy of Multiple Coronary Arteries using Other Contrast (ICD-10-PCS; 2021-06-26)
PROC: B215YZZ Fluoroscopy of Left Heart using Other Contrast (ICD-10-PCS; 2021-06-26)
PROC: 027034Z Dilation of Coronary Artery, One Artery with Drug-eluting Intraluminal Device, Percutaneous Approach (ICD-10-PCS; 2021-06-26)
PROC: 0W3P8ZZ Control Bleeding in Gastrointestinal Tract, Via Natural or Artificial Opening Endoscopic (ICD-10-PCS; 2021-07-06)
PROC: 0DH68UZ Insertion of Feeding Device into Stomach, Via Natural or Artificial Opening Endoscopic (ICD-10-PCS; 2021-07-07)
PROC: 0B110F4 Bypass Trachea to Cutaneous with Tracheostomy Device, Open Approach (ICD-10-PCS; 2021-07-07)
DX: J69.0 Pneumonitis due to inhalation of food and vomit (principal); I21.19 ST elevation (STEMI) myocardial infarction involving other coronary artery of inferior wall; R65.11 Systemic inflammatory response syndrome (SIRS) of non-infectious origin with acute organ dysfunction; J80 Acute respiratory distress syndrome; E43 Unspecified severe protein-calorie malnutrition; K29.71 Gastritis, unspecified, with bleeding; K22.11 Ulcer of esophagus with bleeding; N17.9 Acute kidney failure, unspecified; I47.2 Ventricular tachycardia; G93.40 Encephalopathy, unspecified; E87.1 Hypo-osmolality and hyponatremia; G93.1 Anoxic brain damage, not elsewhere classified; D68.59 Other primary thrombophilia; R57.0 Cardiogenic shock; Z20.822 Contact with and (suspected) exposure to COVID-19; I48.0 Paroxysmal atrial fibrillation; D64.9 Anemia, unspecified; E78.5 Hyperlipidemia, unspecified; I35.0 Nonrheumatic aortic (valve) stenosis; E83.51 Hypocalcemia; D69.6 Thrombocytopenia, unspecified; N18.30 Chronic kidney disease, stage 3 unspecified; M32.9 Systemic lupus erythematosus, unspecified; I12.9 Hypertensive chronic kidney disease with stage 1 through stage 4 chronic kidney disease, or unspecified chronic kidney disease; I25.10 Atherosclerotic heart disease of native coronary artery without angina pectoris; E83.42 Hypomagnesemia; E11.65 Type 2 diabetes mellitus with hyperglycemia; J15.0 Pneumonia due to Klebsiella pneumoniae; E11.22 Type 2 diabetes mellitus with diabetic chronic kidney disease; R13.10 Dysphagia, unspecified; J32.4 Chronic pansinusitis; B96.1 Klebsiella pneumoniae [K. pneumoniae] as the cause of diseases classified elsewhere; Z66 Do not resuscitate; Z90.49 Acquired absence of other specified parts of digestive tract; Z79.82 Long term (current) use of aspirin; Z79.899 Other long term (current) drug therapy; Z51.5 Encounter for palliative care
CPT/HCPCS: 10078; 50101; 50386; 50403; 52287; 56525; 62110; 62900; 65040; 85076